=== PATIENT | female | born 1990 | race Caucasian/White ===

== ENCOUNTER 2023-01-24 16:37 | Emergency (ER) | payer OTHER ==
[2023-01-24 17:10] LABS: Absolute Lymphocytes (CBC) 0.7 K/uL (0.7-4.9); Hematocrit 40.2 % (36.0-45.0); Lymphocytes % 14.2 % (15.3-44.8); MCV 93.8 fL (80-100); MPV 8.4 fL (7.6-11.3); Platelets 173 thou/uL (152-406); RBC Red Blood Cell Count 4.29 M/uL (3.86-4.86)
[2023-01-24] MEDS ORDERED: NA CHLORIDE 0.9% 1,000 ML ONE (17:10)
[2023-01-24 17:28] LABS: Albumin 4.2 g/dL (3.4-5.0); Bilirubin Direct 0.4 mg/dL (0-0.2); Bilirubin Indirect, Calculated 0.4 mg/dL (0.2-0.8); Bilirubin Total 0.8 mg/dL (0.2-1.0); Magnesium 1.6 mg/dL (1.6-2.4); Potassium 4.3 mEq/L (3.5-5.1); Protein, Total 8.4 g/dL (6.4-8.2)
--- NOTE | 2023-01-24 18:03 | RAD REPORT ---
EXAM DESCRIPTION: Donald Single View01/24/2023 5:31 pm CLINICAL HISTORY: CHEST PAIN COMPARISON: No comparisons TECHNIQUE: Portable AP view of the chest. FINDINGS: Small medial basal airspace opacity favored to reflect atelectasis. No pneumothorax or ef fusion. The cardiomediastinal contours are unremarkable. IMPRESSION: No acute cardiopulmonary process.
--- NOTE | 2023-01-24 18:54 | RAD REPORT ---
EXAM DESCRIPTION: US - Abdomen Exam Limited - 01/24/2023 6:24 pm CLINICAL HISTORY: ABD PAIN COMPARISON: No comparisons TECHNIQUE: Sonographic grayscale and color flow images of the right upper abdominal quadrant were obtained. FINDINGS: The gallbladder demonstrates no gallstones. No pericholecystic fluid or gallbladder wall t hickening. The common bile duct is normal measuring 4 mm. The liver demonstrates no findings of intrahepatic biliary dilatation. IMPRESSION: Unremarkable right upper quadrant ultrasound.
[2023-01-24] MEDS ORDERED: LORazepam 2 MG/ML VIAL ONE (19:49)
[2023-01-24 20:16] LABS: Protime INR 0.98
--- NOTE | 2023-01-24 21:59 | RAD REPORT ---
EXAM DESCRIPTION: CT - Chest For Pe Angio - 01/24/2023 9:18 pm CLINICAL HISTORY: chest pain, shortness of breath COMPARISON: Chest Single View dated 01/24/2023 TECHNIQUE: Thin axial CT images of the chest were obtained following administration of 70 mL Isovue 370 IV contrast. Multiplanar reconstructions, and maximum intensity projection reconstructions were g enerated and reviewed. Exam utilizes a protocol for optimal evaluation of pulmonary arterial tree. All CT scans are performed using dose optimization technique as appropriate and may include automated exposure control or mA/KV adjustment according to patient size. FINDINGS: Pulmonary arteries are normal. No emboli or other suspicious finding. No acute or signific ant aorta findings. Incidentally noted aberrant right subclavian artery. No mass or infiltrate in the lung parenchyma. No pleural thickening or pleural effusion. No pneumotho rax. No abnormal mediastinal or hilar masses or lymphadenopathy seen. No chest wall mass or abnormal axill iary lymphadenopathy. Diffuse hepatic parenchymal hypoattenuation suggesting steatosis. IMPRESSION: No evidence of acute central pulmonary emboli. No other acute pulmonary findings. Hepatic steatosis.
--- NOTE | 2023-01-24 22:29 | EDPHYS ---
Physician Documentation [facility] Name: Laney Pratt Age: 32 yrs Sex: Female : 1990 Arrival Date: 01/24/2023 Time: 16:37 Bed 19 Private MD: ED Physician Christiano Evans HPI: 01/24 18:22 This 32 yrs old Female presents to ER via Ambulatory with complaints of Chest Pain, ms3 Numbness Of Face, Breathing Difficulty. 18:22 32-year-old female with no past medical history presents for chest pain that has been ms3 ongoing for 2 days and vaginal bleeding for 2 months. Patient states she has gone through 12 pads per day with her vaginal bleeding. Patient endorses nausea and vomiting. Patient denies diarrhea. Patient states she is having 8/10 sharp left-sided chest pain. Patient denies alleviating or inciting factors. 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 - Social history:: Smoking status: Patient reports the use of cigarette tobacco products, smokes one-half pack cigarettes per day. ROS: 18:22 Constitutional: Negative for fever, and chills. ms3 18:22 Respiratory: Negative for shortness of breath, cough, wheezing, and pleuritic chest pain, Abdomen/GI: Negative for abdominal pain, nausea, vomiting, diarrhea, and constipation, MS/Extremity: Negative for injury and deformity, Skin: Negative for injury, rash, and discoloration. 18:22 Cardiovascular: Positive for chest pain. 18:22 All other systems are negative. Exam: 18:22 Constitutional: This is a well developed, well nourished patient who is awake, alert, ms3 and in no acute distress. Head/Face: Normocephalic, atraumatic. Neck: Trachea midline, no cervical lymphadenopathy. Supple, full range of motion without nuchal rigidity, or vertebral point tenderness. No Meningismus. Chest/axilla: Normal chest wall appearance and motion. Nontender with no deformity. Cardiovascular: Regular rate and rhythm with a normal S1 and S2. No gallops, murmurs, or rubs. Normal PMI, no JVD. No pulse deficits. Respiratory: Lungs have equal breath sounds bilaterally, clear to auscultation and percussion. No rales, rhonchi or wheezes noted. No increased work of breathing, no retractions or nasal flaring. Abdomen/GI: Soft, non-tender, with normal bowel sounds. No distension or tympany. No guarding or rebound. No evidence of tenderness throughout. Skin: Warm, dry with normal turgor. Normal color with no rashes, no lesions, and no evidence of cellulitis. MS/ Extremity: Pulses equal, no cyanosis. Neurovascular intact. Full, normal range of motion. Neuro: Awake and alert, GCS 15, oriented to person, place, time, and situation. Cranial nerves II-XII grossly intact. Motor strength 5/5 in all extremities. Sensory grossly intact. Cerebellar exam normal. Normal gait. 18:22 ECG was reviewed by the Attending Physician. ms3 Vital Signs: 16:41 BP 150 / 114; Pulse 139; Resp 18; Temp 98.7; Pulse Ox 98% ; Pain 8/10; ap3 18:30 BP 137 / 88; Pulse 95; Resp 19; Pulse Ox 100% on R/A; nj1 20:06 BP 148 / 102; Pulse 86; Resp 20; Pulse Ox 99% ; Pain 0/10; nj1 21:03 BP 137 / 88; Pulse 72; Resp 18; Pulse Ox 99% on R/A; mb9 22:50 BP 138 / 87; Pulse 76; Resp 16 S; Pulse Ox 99% on R/A; ha1 16:41 Pain Scale: Adult ap3 20:06 Pain Scale: Adult nj1 MDM: 16:50 Patient medically screened. ms3 18:22 Differential diagnosis: abnormal EKG, acute myocardial infarction, cholecystitis, ms3 Cholelithiasis. 21:46 Transition of care: After a detail discussion of the patient's case, care is ms3 transferred to Christiano Evans MD. 22:24 ED course: CT PE protocol is negative for PE, there is no acute pulmonary findings, sp4 there is hepatic steatosis. Patient's heart rate decreased to 72. Right upper quadrant ultrasound is negative. Patient has significant transaminitis with elevated AST ALT, elevated D-dimer likely secondary to acute hepatitis. Patient was discussed with Dr. Jose Larkin with gastroenterology, who states patient should be referred to his office for additional evaluation. Will send hepatitis panel to the lab today.. Will provide patient with Valium as needed anxiety and ondansetron as needed nausea . . 01/25 01:05 Data reviewed: vital signs, nurses notes, old medical records, lab test result(s), EKG, sp4 radiologic studies, CT scan, plain films, ultrasound. ED course: Patient stable for discharge home to be investigated for hepatitis.. 01/24 16:50 Order name: Basic Metabolic Panel; Complete Time: 17:32 ms3 01/24 16:50 Order name: CBC with Diff; Complete Time: 17:32 ms3 01/24 16:50 Order name: Magnesium; Complete Time: 17:32 ms3 01/24 16:50 Order name: Troponin HS; Complete Time: 17:32 ms3 01/24 16:51 Order name: Lipase; Complete Time: 17:32 ms3 01/24 16:51 Order name: LFT's; Complete Time: 17:32 ms3 01/24 19:23 Order name: D-Dimer; Complete Time: 20:18 ms3 01/24 19:29 Order name: PT-INR; Complete Time: 20:18 ms3 01/24 22:13 Order name: Hepatitis Panel sp4 01/24 16:50 Order name: XRAY Chest (1 view); Complete Time: 18:52 ms3 01/24 17:33 Order name: US Abdomen Limited; Complete Time: 19:04 ms3 01/24 20:18 Order name: CT Chest For PE Angio; Complete Time: 22:06 ms3 01/24 16:50 Order name: EKG; Complete Time: 16:51 ms3 01/24 16:50 Order name: Cardiac monitoring; Complete Time: 17:17 ms3 01/24 16:50 Order name: EKG - Nurse/Tech; Complete Time: 17:17 ms3 01/24 16:50 Order name: IV Saline Lock; Complete Time: 16:54 ms3 01/24 16:50 Order name: Labs collected and sent; Complete Time: 16:54 ms3 01/24 16:50 Order name: O2 Per Protocol; Complete Time: 17:00 ms3 01/24 16:50 Order name: O2 Sat Monitoring; Complete Time: 17:00 ms3 EC/31 18:22 Rate is 76 beats/min. Rhythm is regular. QRS [place] is Normal. [place] interval is normal. QRS ms3 interval is normal. QT interval is normal. Clinical impression: Normal ECG. Interpreted by me. Reviewed by me. Administered Medications: 16:59 Drug: NS 0.9% IV 1000 ml Route: IV; Rate: 1000 ml; Site: right antecubital; ll1 19:45 Drug: Ativan IVP 1 mg Route: IVP; Site: right antecubital; nj1 22:35 Drug: LORazepam PO 1 mg Route: PO; ha1 22:50 Follow up: Response: No adverse reaction ha1 22:35 Drug: Ondansetron PO 4 mg Route: PO; ha1 22:49 Follow up: Response: No adverse reaction ha1 Disposition Summary: 01/24/23 22:28 Discharge Ordered Location: Home sp4 Problem: new sp4 Symptoms: have improved sp4 Condition: Stable sp4 Diagnosis - Nonspecific reactive hepatitis sp4 - Acute hepatitis, acute transaminitis,, acute anxiety, tachycardia, nausea vomiting sp4 Followup: sp4 - With: Jose Nguyen MD - When: 7 - 10 days - Reason: Recheck today's complaints Discharge Instructions: - Discharge Summary Sheet sp4 - Fatty Liver Disease sp4 Forms: - Patient Portal Instructions sp4 - Leadership Thank You Letter sp4 Prescriptions: - ondansetron 4 mg Oral Tablet,disintegrating - take 1 tablet by ORAL route every 6 hours PRN nausea; 30 tablet; Refills: 0, sp4 Product Selection Permitted - Valium 5 mg Oral Tablet - take 1 tablet by ORAL route every 8-12 hours As needed PRN anxiety; 20 tablet; sp4 Refills: 0, Product Selection Permitted Signatures: Dispatcher [employer] EDLorena Ferris RN RN ap3 Ria Gonzales RN RN ll1 Vitaliy Garza DO DO ms3 Riya Diehl RN RN ha1 Christiano Evans MD MD sp4 Candice Hyde RN RN nj1
--- NOTE | 2023-01-24 22:29 | ER ---
Nurse's Notes [facility] Name: Laney Pratt Age: 32 yrs Sex: Female : 1990 Arrival Date: 01/24/2023 Time: 16:37 Bed 19 Private MD: Diagnosis: Nonspecific reactive hepatitis;Acute hepatitis, acute transaminitis,, acute anxiety, tachycardia, nausea vomiting Presentation: 01/24 16:41 Chief complaint: Patient states: she feels like the front side of her body is numb. ap3 .patient states this has happened two days ago as well. patient reports that she has been having heavy menstruating for approx a week. patient also states she vomited blood this morning. Coronavirus screen: At this time, the client does not indicate any symptoms associated with coronavirus-19. Ebola Screen: No symptoms or risks identified at this time. Initial Sepsis Screen: Does the patient meet any 2 criteria? HR > 90 bpm. Initial Sepsis Screen: Does the patient have a suspected source of infection? No. Patient's initial sepsis screen is negative. Risk Assessment: Do you want to hurt yourself or someone else? Patient reports no desire to harm self or others. Onset of symptoms was January 22, 2023. 16:41 Method Of Arrival: Ambulatory ap3 16:41 Acuity: SHABBIR 2 ap3 Triage Assessment: 16:45 General: Appears ill, Behavior is anxious. Pain: Complains of pain in chest Pain ap3 currently is 8 out of 10 on a pain scale. Neuro: Level of Consciousness is awake, alert, obeys commands, Oriented to person, place, time, situation, Appropriate for age. Cardiovascular: Reports chest pain, Patient's skin is warm and dry. Respiratory: Airway is patent Respiratory effort is even, unlabored, Respiratory pattern is regular, symmetrical. GI: Reports lower abdominal pain, upper abdominal pain, nausea, vomiting. 16:46 : Reports vaginal bleeding that is heavy flow. 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 - Social history:: Smoking status: Patient reports the use of cigarette tobacco products, smokes one-half pack cigarettes per day. Screenin:45 [facility] ED Fall Risk Assessment (Adult) History of falling in the last 3 months, ap3 including since admission No falls in past 3 months (0 pts). Abuse screen: Denies threats or abuse. Nutritional screening: No deficits noted. Tuberculosis screening: No symptoms or risk factors identified. Assessment: 17:02 Reassessment: No changes from previously documented assessment. Patient and/or family ll1 updated on plan of care and expected duration. Pain level reassessed. Patient is alert, oriented x 3, equal unlabored respirations, skin warm/dry/pink. 17:18 Pain: Pain began 2-3 days ago. nj1 17:19 Pain: Pain does not radiate. nj1 18:00 Reassessment: Patient appears in no apparent distress at this time. Patient and/or nj1 family updated on plan of care and expected duration. Pain level reassessed. Patient is alert, oriented x 3, equal unlabored respirations, skin warm/dry/pink. 19:00 Reassessment: Patient appears in no apparent distress at this time. Patient and/or nj1 family updated on plan of care and expected duration. Pain level reassessed. Patient is alert, oriented x 3, equal unlabored respirations, skin warm/dry/pink. 20:00 Reassessment: Patient appears in no apparent distress at this time. Patient and/or nj1 family updated on plan of care and expected duration. Pain level reassessed. Patient is alert, oriented x 3, equal unlabored respirations, skin warm/dry/pink. Patient denies pain at this time. 21:04 Reassessment: No changes from previously documented assessment. Patient and/or family mb9 updated on plan of care and expected duration. Pain level reassessed. Patient is alert, oriented x 3, equal unlabored respirations, skin warm/dry/pink. 22:50 Reassessment: Patient and/or family updated on plan of care and expected duration. Pain ha1 level reassessed. Patient is alert, oriented x 3, equal unlabored respirations, skin warm/dry/pink. Vital Signs: 16:41 BP 150 / 114; Pulse 139; Resp 18; Temp 98.7; Pulse Ox 98% ; Pain 8/10; ap3 18:30 BP 137 / 88; Pulse 95; Resp 19; Pulse Ox 100% on R/A; nj1 20:06 BP 148 / 102; Pulse 86; Resp 20; Pulse Ox 99% ; Pain 0/10; nj1 21:03 BP 137 / 88; Pulse 72; Resp 18; Pulse Ox 99% on R/A; mb9 22:50 BP 138 / 87; Pulse 76; Resp 16 S; Pulse Ox 99% on R/A; ha1 16:41 Pain Scale: Adult ap3 20:06 Pain Scale: Adult nj1 ED Course: 16:38 Patient arrived in ED. rg4 16:39 Vitaliy Garza DO is Attending Physician. ms3 16:44 Triage completed. ap3 16:45 Arm band placed on left wrist. ap3 16:54 Inserted saline lock: 22 gauge in right antecubital area, using aseptic technique. ll1 Blood collected. 16:59 Ria Gonzales RN is Primary Nurse. ll1 17:17 Patient has correct armband on for positive identification. Bed in low position. Call nj1 light in reach. Adult w/ patient. Provided Education on: fall precautions, call light. Client placed on continuous cardiac and pulse oximetry monitoring. NIBP monitoring applied. 17:18 Patient maintains SpO2 saturation greater than 95% on room air. nj1 17:33 XRAY Chest (1 view) In Process Unspecified. EDMS 18:26 US Abdomen Limited In Process Unspecified. EDMS 21:03 Report received from LOIS Harvey. mb9 21:20 CT Chest For PE Angio In Process Unspecified. EDMS 21:43 Attending Physician role handed off by Vitaliy Garza DO sp4 21:43 Christiano Evans MD is Attending Physician. sp4 22:00 Report received from LOIS Gupta. ha1 22:28 Jose Nguyen MD is Referral Physician. sp4 22:51 No provider procedures requiring assistance completed. IV discontinued, intact, ha1 bleeding controlled, No redness/swelling at site. Pressure dressing applied. Administered Medications: 16:59 Drug: NS 0.9% IV 1000 ml Route: IV; Rate: 1000 ml; Site: right antecubital; ll1 19:45 Drug: Ativan IVP 1 mg Route: IVP; Site: right antecubital; nj1 22:35 Drug: LORazepam PO 1 mg Route: PO; ha1 22:50 Follow up: Response: No adverse reaction ha1 22:35 Drug: Ondansetron PO 4 mg Route: PO; ha1 22:49 Follow up: Response: No adverse reaction ha1 Medication: 17:19 VIS not applicable for this client. nj1 Outcome: 22:28 Discharge ordered by . sp4 22:51 Discharged to home ambulatory, with family. ha1 22:51 Condition: stable 22:51 Discharge instructions given to patient, family, Instructed on discharge instructions, follow up and referral plans. medication usage, Demonstrated understanding of instructions, follow-up care, medications, Prescriptions given X 2. 22:51 Patient left the ED. ha1 Signatures: Dispatcher [employer] EDMS Marixa Pereira rg4 Lorena Richards RN RN ap3 Ria Gonzales RN RN ll1 Vitaliy Garza, DO ms3 Riya Diehl RN RN ha1 Ryanne Mccullough RN RN mb9 Christiano Evans MD MD sp4 Candice Hyde RN RN nj1
[2023-01-24] MEDS ORDERED: LORAZEPAM 1 MG TABLET ONE (22:46)
[2023-01-24] MEDS ORDERED: ONDANSETRON 4 MG (ODT) TAB ONE (22:47)
[2023-01-25 00:19] LABS: Hepatitis B Core IgM Nonreactive (Nonreactive); Hepatitis B surface AG Interp. Nonreactive (Nonreactive); Hepatitis C Virus Ab Nonreactive (Nonreactive)
[2023-01-25 00:30] VITALS: TEMP 98.7
[2023-01-25 00:53] VITALS: O2SAT 99
[2023-01-25 00:55] VITALS: BP 138/87
--- NOTE | 2023-01-25 15:22 | EKG ---
Test Date: 2023-01-24 Test Time: 17:09:46 Laboratory Geneticist: NIXON MEASUREMENT RESULTS: Intervals: Rate: 76 IN: 146 QRSD: 90 QT: 368 QTc: 414 [place]: P: 54 IN: 146 QRS: 17 T: 35 INTERPRETIVE STATEMENTS: Normal sinus rhythm with sinus arrhythmia Normal ECG No previous ECG available for comparison Electronically Signed On 01-25-23 15:20:55 CDT by Tim Atkinson
== END 2023-01-24 22:51 | disposition home or self-care (01) ==
LOC: ER 16:37
DX: F41.9 Anxiety disorder, unspecified (principal); B17.9 Acute viral hepatitis, unspecified; R74.01 Elevation of levels of liver transaminase levels; R11.2 Nausea with vomiting, unspecified; R00.0 Tachycardia, unspecified; F17.210 Nicotine dependence, cigarettes, uncomplicated
CPT/HCPCS: 93005; 85025; 80048; 36415; 83735; 85610; 85379; 80076; 84484; 83690; 80074; 71275; 71045; 76705; 96374; 99285; Q9967; Q0162; J7030

== ENCOUNTER 2023-05-02 21:23 | Emergency (ER) | payer OTHER, SELFPAY ==
[2023-05-02] MEDS ORDERED: ACETAMINOPHEN 500 MG TAB ONE (21:58)
--- NOTE | 2023-05-02 22:39 | RAD REPORT ---
EXAM DESCRIPTION: RAD - Foot Right 3 View - 05/02/2023 10:08 pm CLINICAL HISTORY: PAIN COMPARISON: No comparisons TECHNIQUE: Right foot, 3 views. FINDINGS: No fracture, dislocation or periosteal reaction. No air or foreign body in the soft tissues. Soft tissue swelling about the ankle. IMPRESSION: No acute osseous abnormality. Soft tissue swelling about the ankle. .
--- NOTE | 2023-05-02 22:41 | RAD REPORT ---
EXAM DESCRIPTION: RAD - Ankle Right 3 View - 05/02/2023 10:08 pm CLINICAL HISTORY: PAIN COMPARISON: No comparisons TECHNIQUE: Right ankle, 3 views. FINDINGS: Oblique fracture of the distal fibula. Questionable widening of the distal tibiofibular sy ndesmosis and lateral clear space. This can be further evaluated by weight-bearing views and addition al views of the proximal tibia/fibula. Surrounding soft tissue swelling. No periosteal reaction. No joint effusion seen. No joint space narrowing. . IMPRESSION: As above.
--- NOTE | 2023-05-02 23:28 | ER ---
Nurse's Notes [facility] Name: Laney Pratt Age: 32 yrs Sex: Female : 1990 Arrival Date: 05/02/2023 Time: 21:23 Bed 19 Private MD: Diagnosis: Nondisplaced fracture of lateral malleolus of right fibula Presentation: 05/02 21:32 Chief complaint: Patient states: stepped in a hole in her backyard last night and as6 hasn't been able to walk on her right ankle. Coronavirus screen: At this time, the client does not indicate any symptoms associated with coronavirus-19. Ebola Screen: No symptoms or risks identified at this time. Initial Sepsis Screen: Does the patient meet any 2 criteria? No. Patient's initial sepsis screen is negative. Does the patient have a suspected source of infection? No. Patient's initial sepsis screen is negative. Risk Assessment: Do you want to hurt yourself or someone else? Patient reports no desire to harm self or others. Onset of symptoms was May 01, 2023. 21:32 Method Of Arrival: Wheelchair as6 21:32 Acuity: SHABBIR 4 as6 Triage Assessment: 21:45 General: Appears uncomfortable, Behavior is cooperative, appropriate for age, anxious. bp Pain: Complains of pain in right ankle. Musculoskeletal: Bony deformity noted of right ankle. 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 - Social history:: Smoking status: Patient denies any tobacco usage or history of. Screenin/08 00:27 [facility] ED Fall Risk Assessment (Adult) History of falling in the last 3 months, bp including since admission No falls in past 3 months (0 pts). Abuse screen: Denies threats or abuse. Denies injuries from another. Nutritional screening: No deficits noted. Tuberculosis screening: No symptoms or risk factors identified. Assessment: 00:27 Reassessment: [facility]. bp Vital Signs: 05/02 21:32 BP 136 / 88; Pulse 94; Resp 18 S; Temp 97.5(TE); Pulse Ox 100% on R/A; Weight 63.5 kg as6 (R); Height 5 ft. 4 in. (R); Pain 7/10; 21:32 Body Mass Index 24.03 (63.50 kg, 162.56 cm) as6 21:32 Pain Scale: Adult as6 ED Course: 21:30 Patient arrived in ED. gm2 21:32 Star Treviño PA is PHCP. cp 21:32 Star Vigil MD is Attending Physician. cp 21:35 Triage completed. as6 21:36 Arm band placed on. as6 22:10 XRAY Ankle RIGHT 3 view In Process Unspecified. EDMS 22:10 XRAY Foot RIGHT 3 View In Process Unspecified. EDMS 22:54 Sheldon Camara, LOIS is Primary Nurse. bp 23:25 Alan Pascal MD is Referral Physician. cp 05/03 00:00 Crutch training done. Orthoglass splint: Posterior short lleg splint applied on right bp leg. stirrup splint applied on right leg. 00:27 Patient has correct armband on for positive identification. Bed in low position. Call bp light in reach. Side rails up X2. Adult w/ patient. 00:27 No provider procedures requiring assistance completed. Patient did not have IV access bp during this emergency room visit. Administered Medications: 05/02 21:38 Not Given (Other Intervention Used): acetaminophen-codeine(300 mg-30 mg) 2 tabs PO mb9 once; RASS on ADMIN: Combtv4, Very Agttd3, Agttd2, Rstlss1, AlertClm0, Drwsy-1, Lt Sdtn-2, Mod Sdtn-3, Dp Sdtn-4, UnArsble-5 21:39 Not Given (Other Intervention Used): [id number] mg PO once mb9 21:46 Drug: Acetaminophen PO 1000 mg PO once Route: PO; as6 05/03 00:29 Follow up: Response: No adverse reaction bp Outcome: 05/02 23:27 Discharge ordered by . cp 05/03 00:28 Discharged to home via wheelchair, with crutches, with family, bp Condition: stable Discharge instructions given to patient, family, Instructed on discharge instructions, follow up and referral plans. crutch walking, Demonstrated understanding of instructions, follow-up care, crutch walking, splint care, 00:29 Patient left the ED. bp Signatures: Dispatcher [employer] EDMS Star Treviño PA PA cp Peltier, Brian RN RN Jesse Sullivan RN RN as6 Marcela Bishop 2 Ryanne Mccullough RN mb9
--- NOTE | 2023-05-02 23:28 | EDPHYS ---
Physician Documentation [facility] Name: Laney Pratt Age: 32 yrs Sex: Female : 1990 Arrival Date: 05/02/2023 Time: 21:23 Bed 19 Private MD: ED Physician Star Vigil HPI: 05/02 21:45 This 32 yrs old Female presents to ER via Wheelchair with complaints of Ankle Injury. cp 21:45 The patient presents with an injury, pain, that is acute, swelling, tenderness. The cp complaints affect the right ankle. Onset: The symptoms/episode began/occurred yesterday. Context: The patient is unable to bear weight. must have assistance, stepped in hole in yard. Associated signs and symptoms: The patient has no apparent associated signs or symptoms. Modifying factors: the symptoms are aggravated by movement. MEAT BONER: 21:35 LMP 01/2023, Verified, EDC 11/01/2023, Gestational age from LMP: 14 weeks 0 days as6 Historical: - Allergies: 21:36 No Known Allergies; as6 - Home Meds: 21:36 None [Active]; as6 - PMHx: 21:36 None; as6 - PSHx: 21:36 None; as6 - Immunization history:: Adult Immunizations up to date. - Social history:: Smoking status: Patient denies any tobacco usage or history of. ROS: 21:50 MS/extremity: Positive for decreased range of motion, ecchymosis, pain, swelling, cp tenderness, of the right ankle, 21:50 Neck: Negative for pain with movement, pain at rest, cp 21:50 Back: Negative for pain at rest, pain with movement, 21:50 Neuro: Positive for numbness, of the right foot, 21:50 All other systems are negative, Exam: 21:55 Constitutional: The patient appears in no acute distress, alert, awake, well developed, cp well nourished, uncomfortable, 21:55 Head/Face: Normocephalic, atraumatic. cp 21:55 Neck: ROM/movement: is normal, is supple, without pain, no range of motions limitations, 21:55 Chest/axilla: Inspection: normal, 21:55 Cardiovascular: Rate: normal, 21:55 Respiratory: the patient does not display signs of respiratory distress, Respirations: normal, no use of accessory muscles, 21:55 Back: pain, is absent, ROM is normal, 21:55 Musculoskeletal/extremity: Extremities: grossly normal except: noted in the right ankle: swelling, marked tenderness, ecchymosis noted lateral malleolus, Achilles tendon palpated and intact, no pain at proximal right fibula and or base of right fifth metatarsal, Perfusion: the extremity is normally perfused throughout, the right foot decreased sensation, Vital Signs: 21:32 BP 136 / 88; Pulse 94; Resp 18 S; Temp 97.5(TE); Pulse Ox 100% on R/A; Weight 63.5 kg as6 (R); Height 5 ft. 4 in. (R); Pain 7/10; 21:32 Body Mass Index 24.03 (63.50 kg, 162.56 cm) as6 21:32 Pain Scale: Adult as6 Procedures: 23:30 Splinting: Splint applied to right ankle using Orthoglass splint, applied by nurse. cp Examined by me, post splint application: neurovascular intact, Patient tolerated well. MDM: 21:37 Patient medically screened. [facility] 23:26 Data reviewed: vital signs, nurses notes, radiologic studies, plain films. cp 23:26 Differential diagnosis: fracture, sprain, dislocation. I considered the following cp discharge prescriptions or medication management in the emergency department Medications were administered in the Emergency Department. See MAR. Counseling: I had a detailed discussion with the patient and/or guardian regarding the historical points, exam findings, and any diagnostic results supporting the discharge/admit diagnosis, radiology results, the need for outpatient follow up, for definitive care, a orthopedic surgeon, to return to the emergency department if symptoms worsen or persist or if there are any questions or concerns that arise at home. Response to treatment: the patient's symptoms have mildly improved after treatment, and as a result, I will discharge patient. 05/02 21:35 Order name: XRAY Ankle RIGHT 3 view; Complete Time: 22:51 cp 05/02 21:35 Order name: XRAY Foot RIGHT 3 View; Complete Time: 22:51 cp 05/02 22:51 Interpretation: Report reviewed. cp 05/02 22:52 Order name: Splint Leg: Short Leg: with stirrup cp 05/02 22:52 Order name: Crutches cp Administered Medications: 21:38 Not Given (Other Intervention Used): acetaminophen-codeine(300 mg-30 mg) 2 tabs PO mb9 once; RASS on ADMIN: Combtv4, Very Agttd3, Agttd2, Rstlss1, AlertClm0, Drwsy-1, Lt Sdtn-2, Mod Sdtn-3, Dp Sdtn-4, UnArsble-5 21:39 Not Given (Other Intervention Used): [id number] mg PO once mb9 21:46 Drug: Acetaminophen PO 1000 mg PO once Route: PO; as6 05/03 00:29 Follow up: Response: No adverse reaction bp Disposition Summary: 05/02/23 23:27 Discharge Ordered Notes: Location: Home cp Problem: new cp Symptoms: have improved cp Condition: Stable cp Diagnosis - Nondisplaced fracture of lateral malleolus of right fibula cp Followup: cp - With: Alan Pascal MD - When: 2 - 3 days - Reason: distal fibula fracture Discharge Instructions: - Discharge Summary Sheet cp - Nondisplaced Fibular Ankle Fracture Treated With Immobilization cp Forms: - Medication Reconciliation Form cp - Thank You Letter cp - Antibiotic Education cp - Prescription Opioid Use cp - Patient Portal Instructions cp - Leadership Thank You Letter cp Signatures: Dispatcher [employer] EDStar [place] MD MD cha Page, Corey, PA PA cp Jesse Bueno, RN RN as6 Ryanne Mccullough RN RN mb9 Sheldon Camara RN bp Corrections: (The following items were deleted from the chart) 23:29 23:28 MS/extremity: Positive for decreased range of motion, ecchymosis, pain, swelling, cp tenderness, of the right ankle, cp
[2023-05-03 00:42] VITALS: BP 136/88; TEMP 97.5; O2SAT 100
== END 2023-05-03 00:29 | disposition home or self-care (01) ==
LOC: ER 21:23
PROC: 2W3LX1Z Immobilization of Right Lower Extremity using Splint (ICD-10-PCS; principal; 2023-05-03)
DX: O9A.212 Injury, poisoning and certain other consequences of external causes complicating pregnancy, second trimester (principal); S82.64XA Nondisplaced fracture of lateral malleolus of right fibula, initial encounter for closed fracture; Z3A.14 14 weeks gestation of pregnancy
CPT/HCPCS: 99283

== ENCOUNTER 2023-11-19 03:40 | Emergency (ER) | payer OTHER ==
--- OUTSIDE RECORDS SUMMARY | 2023-11-19 03:43 | XMS REPORT | Continuity of Care Document ---
Author Name Unknown Address [address] [place] [address] [facility] Address [address] [facility] [address] [place] [address] Care Team Providers Care Corporate Physical Security Supervisor Name Role Phone PCP, PATIENT DOES NOT HAVE A Primary Care Physic lesa Unavailable Matt Evans Attending Clinician BRUCE Melchor Attending Clinician Unavailable Bruce Lara MD Attending Clinician Matt Evans Admitting Clinician BRUCE Melchor Admitting Clinician Unavailable Payers Payer Name Policy Type Policy Number Effective Date Expirati on Date Source [place] [employer]LO [id number] 2023 00:00:00 Allergies, Adverse Reactions, Alerts Allergy Name Allergy Type Status Severity Reaction(s) Onset Date Inactive Date Treating Clinician Comments Source No Known Allergie s DA Active U 0 6-05 00:00: 00 [facility] No Known Allergie s DA Active U 0 10-24 00:00: 00 [facility] No Known Allergie s DA Active U 0 5- 00:00: 00 [facility] No Known Allergie s DA Active U 0 09-23 00:00: 00 [facility] NO KNOWN ALLERGIE S Drug Class Active [facility] Social History Social Habit Start Date Stop Date Quantity Comments Source Sexual orientation U [facility] Sex Assigned At 1990 00:00:00 1990 00:00:00 [facility] Smoking Status Start Date Stop Date Source Tobacco smoking consumption unknown [facility] Vital Signs Vital Name Observation Time Observation Value Hope argueta Systolic blood pressure 2023-05-24 07:00:00 129 mm[Hg] [facility] Diastolic blood pressure 2023-05-24 07:00:00 87 mm[Hg] [facility] Heart rate 2023-05-24 07:00:00 87 /min [facility] Body temperature 2023-05-24 07:00:00 37.17 Suzanne [facility] Respiratory rate 2023-05-24 07:00:00 14 /min [facility] Oxygen saturation in Arterial blood by Pulse oximetry 2023-05-24 07:00:00 98 /min [facility] Body height 2023-05-24 04:24:00 162.6 cm [facility] Body weight 2023-05-24 04:24:00 61.236 kg [facility] BMI 2023-05-24 04:24:00 23.17 kg/m2 [facility] Procedures Procedure Date / Time Performed Performing Clinician Source [id number] 2023-10-31 00:00:00 ERNESTINA [facility] FIRST TRIMESTER LESS THAN 14 WEEKS WITH TRANSVAGINAL 2023-05-24 06:15:00 Bruce Lara [facility] ABORH CONFIRMATION (LAB ONLY) 2023-05-24 05:52:00 Bruce Lara [facility] POCT TEST 2023-05-24 04:57:00 Bruce Lara [facility] URINALYSIS 2023-05-24 04:54:00 Bruce Lara [facility] BASIC METABOLIC PANEL (NA, K, CL, CO2, GLUCOSE, BUN, CREATININE, CA) 2023-05-24 04:31:00 Bruce Lara [facility] TOTAL BETA HCG ASSAY 2023-05-24 04:31:00 Julio Cesar Lara i [facility] CBC WITH DIFF 2023-05-24 04:31:00 Bruce Lara [facility] HB ABO GROUPING 2023-05-24 04:31:00 [facility] Start Date/Time End Date/Time Encounter Type Admission Type Attending [facility] Facility Care Department Encounter ID Source 2023-10-30 21:22:00 2023-11-02 00:15:00 Inpatient EM Matt Evans [facility] OBPP [id number] [facility] 2023-10-25 15:01:00 2023-10-26 12:02:00 Inpatient EM Matt Evans [facility] OBANTE [id number] [facility] 2023-10-01 16:34:00 2023-10-02 21:45:00 Inpatient UR Matt Evans [facility] OBANTE [id number] [facility] 2023-09-24 11:48:00 2023-09-24 13:38:00 Emergency EM Matt Evans [facility] JONI [id number] [facility] 2023-05-23 22:29:00 2023-05-24 01:25:00 Emergency X BRUCE LARA [facility] ERT [id number] [facility] 2023-05-23 22:29:00 2023-05-24 01:25:00 Emergency Bruce Lara [facility] [id number] [facility] Results Test Description Test Time Test Comments Results Result Co mments Source AB HEPATITIS C [id number] 22:52:00* Test Item Value Reference Range Interpretation Comme nts AB HEPATITIS C (test code = HCVAB) NONREACTIVE NONREACTIVE SIGNAL TO CUTOFF (test code = CUTOFF) 0.08 <0.80 N AB [id number] 22:52:00* Test Item Value Reference Range Interpretation Comme nts AB TREPONEMA (test code = TREPAB) NONREACTIVE NONREACTIVE AB HIV 1 22:52:00* Test Item Value Reference Range Interpretation Comme nts AB HIV 1 2 (test code = WCK19PU) NONREACTIVE NONREACTIVE Done by [employer] 4th Gen HIV Ag/Ab Combo Screen CBC W/AUTO [id number] 21:43:00* Test Item Value Reference Range Interpretation Comme nts WHITE BLOOD CELL (test code = WBC) 12.7 K/mm3 6.5-12.3 H RED BLOOD CELL (test code = RBC) 4.16 M/mm3 3.51-4.69 N HEMOGLOBIN (test code = HGB) 12.1 g/dL 10.1-13.8 N HEMATOCRIT (test code = HCT) 35.5 % 32.5-41.8 N MEAN CELL VOLUME (test code = MCV) 85.3 fL 84.6-96.6 N MEAN CELL HGB (test code = MCH) 29.1 pg 27.3-33.9 N MEAN CELL HGB CONCETRATION ( test code = MCHC) 34.1 gm/dL 32.0-34.2 N RED CELL DISTRIBUTION WIDTH (test code = RDW) 14.5 % 12.2-16.3 N PLATELET COUNT (test code = PLT) 299 K/mm3 134-363 N MEAN PLATELET VOLUME (test c ode = MPV) 11.1 fL 9.2-12.7 N NEUTROPHIL % (test code = NT%) 65.8 % 57.9-77.3 N LYMPHOCYTE % (test code = LY%) 24.7 % 14.5-29.7 N MONOCYTE % (test code = MO%) 6.6 % 3.6-10.2 N EOSINOPHIL % (test code = EO%) 2.2 % 0.0-3.0 N BASOPHIL % (test code = BA%) 0.3 % 0.1-0.9 N NEUTROPHIL # (test code = NT#) 8.4 K/mm3 LYMPHOCYTE # (test code = LY#) 3.1 K/mm3 MONOCYTE # (test code = MO#) 0.8 K/mm3 EOSINOPHIL # (test code = EO#) 0.28 K/mm3 BASOPHIL # (test code = BA#) 0.0 K/mm3 UR PROTEIN/CREATININE [id number] 15:04:00* Test Item Value Reference Range Interpretation Comme nts UR PROTEIN RANDOM (test code = PROTU) 14 mg/dL No reference range available UR CREATININE RANDOM (test code = CREATU) 51 mg/dL No referenc e range available PROTEIN/CREATININE RATIO (test code = P/CRATIO) 274.5 mg/gcrea <200 H COMPREHENSIVE METABOLIC [id number] 14:37:00* Test Item Value Reference Range Interpretation Comme nts SODIUM (test code = NA) 136 mEq/L 136-145 N POTASSIUM (test code = K) 3.8 mEQ/L 3.4-4.5 N Please note new normal range as of September 2023 CHLORIDE (test code = CL) 107 mEq/L 98-107 N Please note new normal range as of September 2023 CARBON DIOXIDE (test code = CO2) 20 mEq/L 22-31 L ANION GAP (test code = GAP) 12.8 10-20 N GLUCOSE (test code = GLU) 131 mg/dL 74-106 H Please note new normal range as of September 2023 BLOOD UREA NITROGEN (test code = BUN) 5 mg/dL 8-23 L Please note ne w normal range as of September 2023 CREATININE (test code = CREAT) 0.6 mg/dL 0.55-1.02 N Please note new normal range as of September 2023 TOTAL PROTEIN (test code = PROT) 7.0 g/dL 5.7-8.2 N Please note new normal range as of September 2023 ALBUMIN (test code = ALB) 4.3 g/dL 3.2-4.8 N Please note new normal range as of September 2023 CALCIUM (test code = CA) 9.8 mg/dL 8.3-10.6 N Please note new normal range as of September 2023 BILIRUBIN TOTAL (test code = BILT) 0.3 mg/dL 0.3-1.2 N Please note n ew normal range as of September 2023 SGOT/AST (test code = AST) 13 units/L < 34 SGPT/ALT (test code = ALT) <7 units/L 10-49 L ALKALINE PHOSPHATASE TOTAL (test code = ALKP) 145 units/L 46-116 H Please note n ew normal range as of September 2023 GLOMERULAR FILTRATION RATE (test code = GFR) 122.99 ml/min >60 N The Glomerular Filtration Rate is a calculated parameterbased on serum Creatinine, patient age and sex. GFR valuesless than 60 mL/min/1.73 square meters are indicative ofChronic Kidney Disease. Values less than 15 mL/min/1.73square meters indicate Kidney failure. The calculation forGFR is based on the CKD-EPI (2021) calculation. This formulais race indifferent and is the recommended formula for GFRby the National Kidney Foundation for Adults.The GFR will not calculate if the sex is unknown or if thepatient's age is <18 years. URINALYSIS [id number] 14:22:00* Test Item Value Reference Range Interpretation Comme nts UA COLOR (test code = COLU) YELLOW YELLOW UA APPEARANCE (test code = APPU) Slightly-Cloudy CLEAR UA GLUCOSE DIPSTICK (test code = DGLUU) NEGATIVE NEG UA BILIRUBIN DIPSTICK (test code = BILU) NEGATIVE NEG UA KETONE DIPSTICK (test cod e = KETU) NEGATIVE NEG UA SPECIFIC GRAVITY (test code = SGU) 1.009 1.001-1.035 N UA BLOOD DIPSTICK (test code = ASHLEY) NEG NEG UA PH DIPSTICK (test code = TRAN) 6.0 5-9 UA PROTEIN DIPSTICK (test code = PROU) NEGATIVE NEG UA UROBILINIOGEN DIPSTICK (test code = URO) NEGATIVE mg/dL NEG UA NITRITE DIPSTICK (test code = ZULEMA) NEG NEG UA LEUKOCYTE ESTERASE DIPSTICK (test code = LEUU) NEG NEG UA WBC (test code = WBCU) 0-2 #/hpf NONE SEEN UA RBC (test code = RBCU) 0-2 #/hpf NONE SEEN UA EPITHELIAL CELLS (test code = EPIU) MANY #/HPF RARE-FEW A UA BACTERIA (test code = BACU) RARE /HPF RARE-FEW UA MUCUS (test code = MUCU) RARE NONE SEEN URINE SAMPLE: CLEAN CATCHCBC W/AUTO [id number] 14:16:00* Test Item Value Reference Range Interpretation Comme nts WHITE BLOOD CELL (test code = WBC) 10.3 K/mm3 6.5-12.3 N RED BLOOD CELL (test code = RBC) 4.38 M/mm3 3.51-4.69 N HEMOGLOBIN (test code = HGB) 12.5 g/dL 10.1-13.8 N HEMATOCRIT (test code = HCT) 38.2 % 32.5-41.8 N MEAN CELL VOLUME (test code = MCV) 87.2 fL 84.6-96.6 N MEAN CELL HGB (test code = MCH) 28.5 pg 27.3-33.9 N MEAN CELL HGB CONCETRATION ( test code = MCHC) 32.7 gm/dL 32.0-34.2 N RED CELL DISTRIBUTION WIDTH (test code = RDW) 14.0 % 12.2-16.3 N PLATELET COUNT (test code = PLT) 274 K/mm3 134-363 N MEAN PLATELET VOLUME (test c ode = MPV) 11.0 fL 9.2-12.7 N NEUTROPHIL % (test code = NT%) 71.9 % 57.9-77.3 N LYMPHOCYTE % (test code = LY%) 20.5 % 14.5-29.7 N MONOCYTE % (test code = MO%) 5.6 % 3.6-10.2 N EOSINOPHIL % (test code = EO%) 1.4 % 0.0-3.0 N BASOPHIL % (test code = BA%) 0.2 % 0.1-0.9 N NEUTROPHIL # (test code = NT#) 7.4 K/mm3 LYMPHOCYTE # (test code = LY#) 2.1 K/mm3 MONOCYTE # (test code = MO#) 0.6 K/mm3 EOSINOPHIL # (test code = EO#) 0.14 K/mm3 BASOPHIL # (test code = BA#) 0.0 K/mm3 UR CREATININE CLEARANCE [id number] 22:30:00* Test Item Value Reference Range Interpretation Comme nts CREATININE CLEARANCE RESULT (test code = CREATCLR) 132 ml/min 70-120 H CREATININE (test code = CREAT) 0.6 mg/dL 0.5-1.0 N UR CREATININE RANDOM (test code = CREATU) 67.2 mg/dL No referenc e range available UR VOLUME (test code = VOL) 1700 ML UR PROTEIN [id number] 22:30:00* Test Item Value Reference Range Interpretation Comme nts UR PROTEIN RANDOM (test code = PROTU) 7.1 mg/dL No reference range available UR PROTEIN 24HR (test code = ULBP79B) 121 mg/24HR 20-150 N Units for 24 HR Urine Protein have changed: New Units = MG/24HR AG HEPATITIS B [id number] 22:40:00* Test Item Value Reference Range Interpretation Comme nts AG HEPATITIS B SURFACE (test code = HBSAG) NONREACTIVE NONREACTIVE AB HEPATITIS C [id number] 22:40:00* Test Item Value Reference Range Interpretation Comme nts AB HEPATITIS C (test code = HCVAB) NONREACTIVE NONREACTIVE SIGNAL TO CUTOFF (test code = CUTOFF) 0.06 <0.80 N AB [id number] 22:40:00* Test Item Value Reference Range Interpretation Comme nts AB TREPONEMA (test code = TREPAB) NONREACTIVE NONREACTIVE AB HIV 1 22:40:00* Test Item Value Reference Range Interpretation Comme nts AB HIV 1 2 (test code = LBU23YO) NONREACTIVE NONREACTIVE Done by [employer] Get-[employer] 4th Gen HIV Ag/Ab Combo Screen BASIC METABOLIC [id number] 21:24:00* Test Item Value Reference Range Interpretation Comme nts SODIUM (test code = NA) 138 mEq/L 135-145 N POTASSIUM (test code = K) 3.8 mEq/L 3.5-5.0 N CHLORIDE (test code = CL) 101 mEq/L 100-115 N CARBON DIOXIDE (test code = CO2) 26 mEq/L 22-31 N ANION GAP (test code = GAP) 14.80 10-20 N GLUCOSE (test code = GLU) 93 mg/dL 65-110 N BLOOD UREA NITROGEN (test code = BUN) 6 mg/dL 7-18 L GLOMERULAR FILTRATION RATE (test code = GFR) 123 ml/min >60 N The Glomerular Filtration Rate is a calculated parameterbased on serum Creatinine, patient age and sex. GFR valuesless than 60 mL/min/1.73 square meters are indicative ofChronic Kidney Disease. Values less than 15 mL/min/1.73square meters indicate Kidney failure. The calculation forGFR is based on the CKD-EPI (2020) calculation. This formulais race indifferent and is the recommended formula for GFRby the National Kidney Foundation for Adults.The GFR will not calculate if the sex is unknown or if thepatient's age is <18 years. CREATININE (test code = CREAT) 0.6 mg/dL 0.5-1.0 N CALCIUM (test code = CA) 10.0 mg/dL 8.4-10.2 N LIVER [id number] 21:24:00* Test Item Value Reference Range Interpretation Comme nts TOTAL PROTEIN (test code = PROT) 7.7 gm/dL 6.3-8.2 N ALBUMIN (test code = ALB) 3.0 gm/dL 3.4-4.8 L BILIRUBIN TOTAL (test code = BILT) 0.2 mg/dL 0.2-1.0 N BILIRUBIN DIRECT (test code = BILD) <0.2 mg/dL <0.2 N SGOT/AST (test code = AST) 13 units/L 15-37 L SGPT/ALT (test code = ALT) 19 units/L 12-78 N ALKALINE PHOSPHATASE TOTAL ( test code = ALKP) 116 units/L 46-116 N - US PREG UT [id number] 20:41:00 [facility] : 1990 Sex: F Patient Name: LANEY YOUNG Unit No: [id number] EXAMS: CPT CODE: [id number] US PREG UT TRANSVAGINAL 46695 COMPARISON: None CLINICAL HISTORY: 32 weeks , history of elevated blood pressure FINDINGS: A limited OB ultrasound was performed to evaluate for biophysical profile. Uterus: Single intrauterine Lower uterine segment/cervix: Normal with a cervical length of 2.6 cm Placenta location: Posterior. No evidence for placenta previa or placenta abruption Amniotic fluid volume: Appropriate with THONG = 19 cm position: Cephalic heart rate: 125 beats per minute BIOPHYSICALPROFILE ARE FOLLOW: breathing movement: 2 Gross body movement: 2 tone: 2 Quantitative AFV: 2 Total: 8 out of 8 IMPRESSION: Viable single intrauterine with a biophysical profile 8 out of 8. at 2040 Reported andsigned by: Venkata Ho M.D. CC: Matt Evans DO Technologist: Cheri Coto RDMS Probe: [id number] Trnscrbd D/ (2040) tSTERLINGN Orig Print D/T: S: 10/01/2023 (2043) [facility] NAME: [facility] Radiology Department PHYS: ANARandaMatt Caban [address] : 1990 AGE: 32 SEX: F [place] [address] LOC: Rick A PHONE #: [phone] EXAM DATE: 10/01/2023 STATUS: ADM IN FAX #: [phone] RAD NO: Page 1 Signed Report Patient Name: LANEY YOUNG Unit No: [id number] EXAMS: CPT CODE: [id number] US PREG UT TRANSVAGINAL 93380 (Continued) [facility] NAME: [facility] Radiology Department PHYS: ANARandaMatt Caban [address] : 1990 AGE: 32 SEX: F [place] [address] LOC: [id number] A PHONE #: [phone] EXAM DATE: 10/01/2023 STATUS: ADM IN FAX #: [phone] RAD NO: Page 2 Signed Report- US FET BIO PH NM W/O [id number] 20:41:00 [facility] 1990 Sex: F Patient Name: LANEY YOUNG Unit No: [id number] EXAMS: CPT CODE: [id number] US FET BIO PH NM W/O [id number] COMPARISON: None CLINICAL HISTORY: 32 weeks , history of elevated blood pressure FINDINGS: A limited OB ultrasound was performed to evaluate for biophysical profile. Uterus: Single intrauterine Lower uterine segment/cervix: Normal with a cervical length of 2.6 cm Placenta loc ation: Posterior. No evidence for placenta previa or placenta abruption Amniotic fluid volume: Appropriate with THONG = 19 cm position: Cephalic heart rate: 125 beats per minute BIOPHYSICALPROFILE ARE FOLLOW: breathing movement: 2 Gross body movement: 2 tone: 2 Quantitative AFV: 2 Total: 8 out of 8 IMPRESSION: Viable single intrauterine with a biophysical profile 8 out of 8. at 2040 Reported and signed by: Venkata Ho M.D. CC: Matt Evans DO Technologist: Cheri Coto RDMS Probe: Trnscrbd D/ (2040) DeshawnHNN Orig Print D/T: S: 10/01/2023 (2043) [facility] NAME: LANEY YOUNG Radiology Department PHYS: Matt Strange [address] : 1990 AGE: 32 SEX: [place] [address] LOC: F.3036 A PHONE #: [phone] EXAM DATE: 10/01/2023 STATUS: ADM IN FAX #: [phone] RAD NO: Page 1 Signed Report Patient Name: LANEY YOUNG Unit No: [id number] EXAMS: CPT CODE: [id number] US FET BIO PH NM W/O NST 91102 (Continued) [facility] NAME: LANEY YOUNG Radiology Department PHYS: Matt Strange [address] : 1990 AGE: 32 SEX: F [place], [place] [address] LOC: [id number] A PHONE #: [phone] EXAM DATE: 10/01/2023 STATUS: ADM IN FAX #: RAD NO: Page 2 Signed ReportCBC W/AUTO [id number] 20:21:00* Test Item Value Reference Range Interpretation Comme nts WHITE BLOOD CELL (test code = WBC) 10.6 K/mm3 6.5-12.3 N RED BLOOD CELL (test code = RBC) 4.25 M/mm3 3.51-4.69 N HEMOGLOBIN (test code = HGB) 12.7 g/dL 10.1-13.8 N HEMATOCRIT (test code = HCT) 37.5 % 32.5-41.8 N MEAN CELL VOLUME (test code = MCV) 88.2 fL 84.6-96.6 N MEAN CELL HGB (test code = MCH) 29.9 pg 27.3-33.9 N MEAN CELL HGB CONCETRATION ( test code = MCHC) 33.9 gm/dL 32.0-34.2 N RED CELL DISTRIBUTION WIDTH (test code = RDW) 14.9 % 12.2-16.3 N PLATELET COUNT (test code = PLT) 352 K/mm3 134-363 N MEAN PLATELET VOLUME (test c ode = MPV) 11.4 fL 9.2-12.7 N NEUTROPHIL % (test code = NT%) 70.7 % 57.9-77.3 N LYMPHOCYTE % (test code = LY%) 21.9 % 14.5-29.7 N MONOCYTE % (test code = MO%) 5.8 % 3.6-10.2 N EOSINOPHIL % (test code = EO%) 0.9 % 0.0-3.0 N BASOPHIL % (test code = BA%) 0.3 % 0.1-0.9 N NEUTROPHIL # (test code = NT#) 7.5 K/mm3 LYMPHOCYTE # (test code = LY#) 2.3 K/mm3 MONOCYTE # (test code = MO#) 0.6 K/mm3 EOSINOPHIL # (test code = EO#) 0.10 K/mm3 BASOPHIL # (test code = BA#) 0.0 K/mm3 UR PROTEIN/CREATININE [id number] 13:21:00* Test Item Value Reference Range Interpretation Comme nts UR PROTEIN RANDOM (test code = PROTU) <6.0 mg/dL No reference range available UR CREATININE RANDOM (test code = CREATU) 16.2 mg/dL No referenc e range available PROTEIN/CREATININE RATIO (test code = P/CRATIO) <200.0 mg/gcrea <200 LACTIC DEHYDROGENASE(LDH)2023-09-24 13:18:00* Test Item Value Reference Range Interpretation Comme nts LACTIC DEHYDROGENASE(LDH) (t est code = LDH) 114 units/L 81-234 N COMPREHENSIVE METABOLIC [id number] 13:18:00* Test Item Value Reference Range Interpretation Comme nts SODIUM (test code = NA) 133 mEq/L 135-145 L POTASSIUM (test code = K) 4.5 mEq/L 3.5-5.0 N CHLORIDE (test code = CL) 100 mEq/L 100-115 N CARBON DIOXIDE (test code = CO2) 26 mEq/L 22-31 N ANION GAP (test code = GAP) 11.40 10-20 N GLUCOSE (test code = GLU) 71 mg/dL 65-110 N BLOOD UREA NITROGEN (test code = BUN) 5 mg/dL 7-18 L GLOMERULAR FILTRATION RATE (test code = GFR) 129 ml/min >60 N The Glomerular Filtration Rate is a calculated parameterbased on serum Creatinine, patient age and sex. GFR valuesless than 60 mL/min/1.73 square meters are indicative ofChronic Kidney Disease. Values less than 15 mL/min/1.73square meters indicate Kidney failure. The calculation forGFR is based on the CKD-EPI (2020) calculation. This formulais race indifferent and is the recommended formula for GFRby the National Kidney Foundation for Adults.The GFR will not calculate if the sex is unknown or if thepatient's age is <18 years. CREATININE (test code = CREAT) 0.5 mg/dL 0.5-1.0 N TOTAL PROTEIN (test code = PROT) 6.9 gm/dL 6.3-8.2 N ALBUMIN (test code = ALB) 2.8 gm/dL 3.4-4.8 L CALCIUM (test code = CA) 10.2 mg/dL 8.4-10.2 N BILIRUBIN TOTAL (test code = BILT) 0.2 mg/dL 0.2-1.0 N SGOT/AST (test code = AST) 10 units/L 15-37 L SGPT/ALT (test code = ALT) 10 units/L 12-78 L ALKALINE PHOSPHATASE TOTAL (test code = ALKP) 112 units/L 46-116 N URIC [id number] 13:18:00* Test Item Value Reference Range Interpretation Comme nts URIC ACID (test code = URIC) 4.9 mg/dL 2.6-6.0 N FIRST TRIMESTER LESS THAN 14 WEEKS WITH [id number] 06:56:48Ordering physician: BRUCE LARA INDICATION: Early , vaginal bleeding COMPARISON: None TECHNIQUE: Grayscale and Doppler images of the pelvis were performed via atransabdominal and endovaginal approach. FINDINGS: There is a single live intrauterine gestation in variableposition. Estimated gestational age by crown-rump length is 13 weeks, 4days. cardiac rate is measured at 168 bpm. There is a low lyingposterior placenta with the tip approximately 8 mm from the internal os.The cervix is closed, measuring 3.8 cm in length. Amniotic fluid volume isgrossly within normal limits. The right ovary is obscured by overlyingbowel gas. The left ovary measures 2.7 x 1.6 x 2.3 cm. There is grosslypreserved color Doppler flow. There is questionable trace free fluid in theposterior cul-de-sac.[facility] Only)2023-05-24 06:30:00* Test Item Value Reference Range Interpretation Comme nts ABO & RH (test code = 20) O Positive [facility] BHCG (QUANTITATIVE)2023-05-24 05:40:59* Test Item Value Reference Range Interpretation Comme nts BETA HCG (test code = 4480965439) 05691.00 See_Comment [Automated messa ge] The system which generated this result transmitted reference range: Non- female and male patients: <5 mIU/mL. The reference range was not used to interpret this result as normal/abnormal. LUIS (test code = LUIS) Gestational Age ?Range (mIU/mL) 1-10 ?Weeks ?[id number] Weeks ?95986-76656978-63 Weeks ?7674-65803779-85 Weeks ?2907-402489 Biotin has been reported to cause a negative bias, interpret results relative to patient's use of biotin. [facility]ressPOHI [id number] 04:57:00* Test Item Value Reference Range Interpretation Comme nts POCT PREG (test code = 1605) Positive On board controls acceptable with C Line (test code = 3574) Yes POCT PREG LOT # (test code = 3575) 069908 POCT PREG TEST DATE ( test code = 3576) 08/04/2024 Lab Interpretation (test cod e = 20667-2) Normal [facility] Metabolic Panel (NA, K, CL, CO2, GLUCOSE, BUN, CREATININE, CA)2023-05-24 04:52:54* Test Item Value Reference Range Interpretation Comme nts NA (test code = 9970359277) 132 mmol/L 135-145 L K (test code = 6801264855) 4.0 mmol/L 3.5-5.0 CL (test code = 5174552911) 100 mmol/L 98-108 CO2 TOTAL (test code = 7489814465) 17 mmol/L 23-31 L AGAP (test code = 4966421865) 15 2-16 BUN (test code = 6364130238) 7 mg/dL 7-23 GLUCOSE (test code = 9362482498) 72 mg/dL 70-110 CREATININE (test code = 2966593488) 0.51 mg/dL 0.50-1.04 CALCIUM (test code = 1530383609) 10.7 mg/dL 8.6-10.6 H eGFR (test code = 49261-2) 128.2 mL/min/1.73m2 CKD-EPI eGFR (2020). Assuming creatinine has been stable day-to-day for at least three months, the eGFR indicates Category G1 (>= 90 mL/min/1.73 m2) Lab Interpretation (test code = 55503-4) Abnormal [facility] with [id number] 04:40:36* Test Item Value Reference Range Interpretation Comme nts WBC (test code = 6690-2) 11.64 See_Comment H [Automated messa ge] The system which generated this result transmitted reference range: 4.30 - 11.10 10*3/?L. The reference range was not used to interpret this result as normal/abnormal. RBC (test code = 789-8) 3.97 See_Comment [Automated [employer] ge] The system which generated this result transmitted reference range: 3.93 - 5.25 10*6/?L. The reference range was not used to interpret this result as normal/abnormal. HGB (test code = 718-7) 12.3 g/dL 11.6-15.0 HCT (test code = 4544-3) 35.3 % 35.7-45.2 L MCV (test code = 787-2) 88.9 fL 80.6-95.5 MCH (test code = 785-6) 31.0 pg 25.9-32.8 MCHC (test code = 786-4) 34.8 g/dL 31.6-35.1 RDW-SD (test code = 73998-1) 42.6 fL 39.0-49.9 RDW-CV (test code = 788-0) 13.1 % 12.0-15.5 PLT (test code = 777-3) 292 See_Comment [Automated messa ge] The system which generated this result transmitted reference range: 166 - 358 10*3/?L. The reference range was not used to interpret this result as normal/abnormal. MPV (test code = 56138-6) 10.2 fL 9.5-12.9 NRBC/100 WBC (test code = 6617397828) 0.0 See_Comment [Automated [employer] ssage] The system which generated this result transmitted reference range: 0.0 - 10.0 /100 WBCs. The reference range was not used to interpret this result as normal/abnormal. NRBC x10^3 (test code = 7904320009) See_Comment [Automated messa ge] The system which generated this result transmitted reference range: 10*3/?L. The reference range was not used to interpret this result as normal/abnormal. GRAN MAT (NEUT) % (test code = 770-8) 74.0 % IMM GRAN % (test code = 2998524845) 0.30 % LYMPH % (test code = 736-9) 19.8 % MONO % (test code = 5905-5) 4.3 % EOS % (test code = 713-8) 1.2 % BASO % (test code = 706-2) 0.4 % GRAN MAT x10^3(ANC) (test code = 7467471608) 8.61 10*3/uL 1.88-7.09 H IMM GRAN x10^3 (test code = 2240883778) 0.04 10*3/uL 0.00-0.06 LYMPH x10^3 (test code = 731-0) 2.30 10*3/uL 1.32-3.29 MONO x10^3 (test code = 742-7) 0.50 10*3/uL 0.33-0.92 EOS x10^3 (test code = 711-2) 0.14 10*3/uL 0.03-0.39 BASO x10^3 (test code = 704-7) 0.05 10*3/uL 0.01-0.07 Lab Interpretation (test code = 09789-9) Abnormal [facility] - ONCE JSPU7736-86-73 04:38:00 * Test Item Value Reference Range Interpretation Comme nts ABO & RH (test code = 20) O Positive IAT (test code = 1185) Negative [facility] Notes Date/Time Note Provider Source 2023-11-01 07:45:00 [id number] OXas29vW/ttMfeI RHNFuWeErbGEGie01eQblmfI2j+sPWHbno2 rwFCIz0535-25-39J14:45:00 [facility] ([facility])OB Postpart Progr NoteREPORT#:[id number] REPORT STATUS: SignedREPORT INITIALIZATION DATE:11/01/23 TIME: 744 PATIENT: LANEY YOUNG UNIT #: [id number]#: [id number] [address] [birth year] AGE: 32 SEX: F ATTEND: Matt Evans DOADM AUTHOR: Jessica Mensah MDREPT SERVICE DT/TIME: 11/01/23 0745* ALL edits or amendments must be made on the electronic/computer document * Subjective SubjectiveAdmission EGA: Weeks: 36 Days: 3EGA at delivery (wks/days): 36 weeksStatus/day: post (1)Patient reports: Patient reports: No: complaints. Objective Nursing Documentation ReviewNursing data:Vital SignsDate Temp Pulse Resp B/P B/P Mean Pulse Ox YpC342/-10/31 97.6-98.1 75-133 18 115-168/65-99 90.0-123.0 97-98 Physical ExamAbdomen: soft, no abnormal tenderness, no guardingUterus: involution appropriate, non-tenderLochia: normal Diagnosis, Assessment Plan Diagnosis, Assessment PlanAssessment: nml progressPlan: routine care, circumcision today, discharge today at 0745 RPT #:[id number] OF REPORT PRProgress hcgm0413-40-85N59:45:00F.TWLS742810 VAvailable for patient ppdjRPYTDKOQXQIJLE4200-23-81U57:46: 01 [facility] 2023-10-31 14:26:00 [id number] j59pGWPg0qI6Trk mZWZ6G0OIRHmP3wV0+RgR8jbSZfJUajB63i VC1DV76718-48-01W33:26:00 [facility] ([facility])OB Delivery NoteREPORT#:[id number] REPORT STATUS: SignedREPORT INITIALIZATION DATE:10/31/23 TIME: 1425 PATIENT: LANEY YOUNG UNIT #: [id number]#: [id number] [address] AGE: 32 SEX: F ATTEND: CristinaMatt DOADM AUTHOR: Jessica Mensah MDREPT SERVICE DT/TIME: 10/31/23 1426* ALL edits or amendments must be made on the electronic/computer document * OB Delivery Pre-deliveryAdmission EGA: Weeks: 36 Days: 3EGA at delivery (wks/days): 36 weeks Blood Loss/DetailsBlood loss at delivery: no more than expectedEBL at delivery (ml's): 100 Baby A InformationBaby A information Delivery date: 10/31/23 status: live born Wt of baby: not yet available Gender: male 1 minute: 8 5 minutes: 9 Presentation: vertex Vaginal Delivery Vaginal DeliveryVaginal delivery: Labor: augmented Medications/Devices used: oxytocin Vaginal delivery: spontaneous Amniotic fluid: clear Anesthesia type: epidural anesthesia Episiotomy: none Placenta: spontaneous, intact Post delivery meds used: oxytocin Mother's condition: mother stable 's condition: stable in room at 1427 RPT #:[id number] OF REPORT CLClinical xrkc6808-03-16Q78:26:00F.DJPH052980 5AVAvailable for patient flsuFDDQZDQWOEIBEG9773-62-58D57:28: 07 [facility] 2023-10-31 08:27:00 [id number] U2snUQ9W8oby7sn Cyd1qT1COfgvDMpLzmlFja0WSxmdEGk3VK5 AIDU7F2459-64-43A29:27:00 [facility])OB Admission / H PREPORT#:[id number] REPORT STATUS: SignedREPORT INITIALIZATION DATE:10/31/23 TIME: 826 PATIENT: LANEY YOUNG UNIT #: [id number]#: [id number] [facility] AGE: 32 SEX: F ATTEND: Matt Evans DOADM AUTHOR: Kimberly Su MDREPT SERVICE DT/TIME: 10/31/23826* ALL edits or amendments must be made on the electronic/computer document * OB HistoryChief complaint: uterine contractionsHPI:32 yo @ 36w5d with PNC c/b gHTN who presents with painful uterine ctx. Denies LOF. +FM. history: : 7 Term: 6 Living children: 6Current : Admission EGA (weeks) 36 Admission EGA (days) 3Labs: Blood type: O Rh: positive Rubella: non-immune Hepatitis B: negative HIV: negative STD: negative Syphilis: currently negative GBS: negative Past HistoryPast Medical History:Reports: Depression/mood disorder, Hypertension. Past Surgical History:Denies: Abdominal surgery. Family HistoryDenies: Diabetes, Hypertension. Additional Family Historymother lupusAlcohol Use Denies EtOH useDrug Use Denies recreational drugsSmoking status for patients 13 years old or older: Former SmokerAllergies:Coded Allergies:No Known Allergies (10/30/23) Objective GeneralVS:Last Documented: Result Date Time Temp 98.2 10/30 0700 B/P Mean 105.0 10/30 0628 B/P 135/86 / 0628 Pulse 84 / 0628 Resp 16 10/29 1850 Vital SignsDate Temp Pulse Resp B/P B/P Mean Pulse Ox WxU131/05-10/30 98.2-98.8 80-95 16 119-144/82-109 95.0-120.0 PATIENT WEIGHT: Weight (lb): Weight (oz): Weight (kg): 80.069614 Physical ExamAbdomen: gravid, no abnormal tendernessUterine activity: Monitor: toco Frequency (description): irregularPelvic exam: Pelvis clinically adequate: yes, inlet appears appropriate, pubic bone configappropr, no midpelvic contraction Vulvar lesions: none, no evidence herpetic les, no evidence of other STD Vagina: normal, non-septated, w/o apparent lesionsCervical/ exam: Dilatation (cm): 4 Effacement (%): 50 station: - 2Membranes: Membranes: IntactBaby A: Baby A baseline: 150 bpm Baby A variability: moderate 6-25 bpm Baby A accelerations: 15 X 15 Baby A decelerations: none Baby A FHR category: category 1 ResultsFindings/Data:Laboratory Tests: 10/29 2138 Hematology WBC (6.5 - 12.3 K/mm3) 12.7 H RBC (3.51 - 4.69 M/mm3) 4.16 Hgb (10.1 - 13.8 g/dL) 12.1 Hct (32.5 - 41.8 %) 35.5 MCV (84.6 - 96.6 fL) 85.3 MCH (27.3 - 33.9 pg) 29.1 MCHC (32.0 - 34.2 gm/dL) 34.1 RDW (12.2 - 16.3 %) 14.5 Plt Count (134 - 363 K/mm3) 299 MPV (9.2 - 12.7 fL) 11.1 Neut % (Auto) (57.9 - 77.3 %) 65.8 Lymph % (Auto) (14.5 - 29.7 %) 24.7 Iroquois % (Auto) (3.6 - 10.2 %) 6.6 Eos % (Auto) (0.0 - 3.0 %) 2.2 Baso % (Auto) (0.1 - 0.9 %) 0.3 Neut # (Auto) (K/mm3) 8.4 Lymph # (Auto) (K/mm3) 3.1 Iroquois # (Auto) (K/mm3) 0.8 Eos # (Auto) (K/mm3) 0.28 Baso # (Auto) (K/mm3) 0.0 Serology Treponema pallidum Ab (NONREACTIVE) NONREACTIVE Hep Bs Antigen (NONREACTIVE) NONREACTIVE Hepatitis C Antibody (NONREACTIVE) NONREACTIVE Hep C Ab Signal/Cutoff (<0.80) 0.08 HIV 1 2 Antibody (NONREACTIVE) NONREACTIVE Diagnosis, Assessment Plan Diagnosis, Assessment PlanFree Text A P:32 yo @ 36w5d with PNC c/b gHTN who is admitted in early labor.-FHTs category 1, reassuring.-Patient has not had cervical change for past few hours. Discussed AROM and pitocin. Will proceed with augmentation at this time.-BPS normal to mild range. PIH labs pending. Consider Mg for persistent severerange BPs or sx.-Epidural requested.-Anticipate , C/S for MFI. at 0831 RPT #:[id number] OF REPORT HPHistory and physical kmekklttvmq7883-81-51I11:27:00F.PDO [id number] for patient oxvfOIMJQLMEXYKWHI3874-07-81U39:31: 21 [facility] 2023-10-26 05:45:00 [id number] H0L/lUSv+Lulu/Fv Eup69F9A1ks8Ww6jbHgNB4Gnckk+aCtecw4 4VH2Y15124-49-95T98:45:00 [facility] ([facility])OB Antepartum Prog NoteREPORT#:[id number] REPORT STATUS: SignedREPORT INITIALIZATION DATE:10/26/23 TIME: 544 PATIENT: LANEY YOUNG UNIT #: [id number]#: [id number] ROOM/BED: [facility]-ADOB: [birth year] AGE: 33 SEX: F ATTEND: Matt Evans DOADM AUTHOR: Jessica Mensah MDREPT SERVICE DT/TIME: 10/26/23 0545* ALL edits or amendments must be made on the electronic/computer document * Subjective SubjectivePatient reports: Patient reports: Yes: headache. Comments:SUE is just a little less severe than at admission, she was able to sleep a bit. No labor complaints, good FM. Objective Nursing Documentation ReviewNursing data:Laboratory Tests: 10/24 10/24 1352 1352 Chemistry Sodium (136 - 145 mEq/L) 136 Potassium (3.4 - 4.5 mEQ/L) 3.8 Chloride (98 - 107 mEq/L) 107 Carbon Dioxide (22 - 31 mEq/L) 20 L Anion Gap (10 - 20) 12.8 BUN (8 - 23 mg/dL) 5 L Creatinine (0.55 - 1.02 mg/dL) 0.6 Glomerular Filtr Rate (>60 ml/min) 122.99 Glucose (74 - 106 mg/dL) 131 H Calcium (8.3 - 10.6 mg/dL) 9.8 Total Bilirubin (0.3 - 1.2 mg/dL) 0.3 AST (< 34 units/L) 13 ALT (10 - 49 units/L) <7 L Total Alk Phosphatase (46 - 116 units/L) 145 H Total Protein (5.7 - 8.2 g/dL) 7.0 Albumin (3.2 - 4.8 g/dL) 4.3 Hematology WBC (6.5 - 12.3 K/mm3) 10.3 RBC (3.51 - 4.69 M/mm3) 4.38 Hgb (10.1 - 13.8 g/dL) 12.5 Hct (32.5 - 41.8 %) 38.2 MCV (84.6 - 96.6 fL) 87.2 MCH (27.3 - 33.9 pg) 28.5 MCHC (32.0 - 34.2 gm/dL) 32.7 RDW (12.2 - 16.3 %) 14.0 Plt Count (134 - 363 K/mm3) 274 MPV (9.2 - 12.7 fL) 11.0 Neut % (Auto) (57.9 - 77.3 %) 71.9 Lymph % (Auto) (14.5 - 29.7 %) 20.5 Iroquois % (Auto) (3.6 - 10.2 %) 5.6 Eos % (Auto) (0.0 - 3.0 %) 1.4 Baso % (Auto) (0.1 - 0.9 %) 0.2 Neut # (Auto) (K/mm3) 7.4 Lymph # (Auto) (K/mm3) 2.1 Iroquois # (Auto) (K/mm3) 0.6 Eos # (Auto) (K/mm3) 0.14 Baso # (Auto) (K/mm3) 0.0 Urines Urine Color (YELLOW) YELLOW Urine Appearance (CLEAR) Slightly-Cloudy Urine pH (5 - 9) 6.0 Ur Specific Many (1.001 - 1.035) 1.009 Urine Protein (NEG) NEGATIVE Urine Glucose (UA) (NEG) NEGATIVE Urine Ketones (NEG) NEGATIVE Urine Blood (NEG) NEG Urine Nitrite (NEG) NEG Urine Bilirubin (NEG) NEGATIVE Urine Urobilinogen (NEG mg/dL) NEGATIVE Ur Leukocyte Esterase (NEG) NEG Urine RBC (NONE SEEN #/hpf) 0-2 Urine WBC (NONE SEEN #/hpf) 0-2 Ur Epithelial Cells (RARE - FEW #/HPF) MANY H Urine Bacteria (RARE - FEW /HPF) RARE Urine Mucus (NONE SEEN) RARE Ur Random Creatinine (mg/dL) 51 U Random Total Protein (mg/dL) 14 Protein/Creatinin Ratio (<200 mg/gcrea) 274.5 H Vital Signs Date Temp Pulse Resp B/P B/P Mean Pulse Ox FiO2 10/24 98.1 86-112 17 112-144/70-97 86.0-115.0 100 Cardiac: regular rate and rhythmLungs: clear to auscultationBaby A: Baby A baseline: 140 bpm Baby A variability: moderate 6-25 bpm Baby A accelerations: 15 X 15 Baby A decelerations: none Diagnosis, Assessment Plan Diagnosis, Assessment PlanAssessment: Severe SUE, no e/o preeclampsia. Pt has had HAs during this requiring admission. Plan: Will give imitrex PT consult at 0902 RPT #:[id number] OF REPORT PRProgress dxuh7986-66-11P93:45:00F.YSYQ410730 -0021AVAvailable for patient ltmmXSZJHKOVJAQHAA6905-49-40D59:02: 13 [facility] 2023-10-26 03:14:00 [id number] Ocf5HUVqKafp/RW wfO6gJ+rNYjejBuQtMSg2LGVXzU7JWOj58u MY6lQH8267-39-68O28:14:00 [facility] ([facility])DT History PhysicalREPORT#:[id number] REPORT STATUS: SignedREPORT INITIALIZATION DATE:10/26/23 TIME: 0314 PATIENT: LANEY YOUNG UNIT #: [id number]#: [id number] [address] [birth year] AGE: 33 SEX: F ATTEND: Matt Evans DOADM AUTHOR: Jessica Mensah MDREPT SERVICE DT/TIME: 10/26/23 3988* ALL edits or amendments must be made on the electronic/computer document * History PhysicalHistory PhysicalPI:32yo at 35w5d who presents today with headache and blurry vision. Says headache is throbbing 10/10, mostly on left side of head. Symptoms started earlier in the week but today has been worse than usual. Hx of HTN. Admitted forobs x2 per patient. Takes fioricet, has not taken it today, say it is not helping. Tylenol does not help either. +FM. Denies VB LOF ctx. Says she lives an hour away and drove herself here today, reports is out of town and will not be back until this evening. Past medical history: hypertensionPast surgical history: denies PSHAllergiesCoded Allergies:No Known Allergies (10/25/23) Review of SystemsRespiratory:Reports: SOB. Denies: non productive cough. Cardiovascular:Denies: chest pain, palpitations. GI:Denies: abdominal pain, diarrhea, nausea. :Denies: dysuria, flank pain, frequency. Objective GeneralVS:Last Documented: Result Date Time B/P Mean 105.0 10/24 1353 B/P 133/86 10/24 1353 Pulse 112 10/24 1353 Pulse Ox 100 10/24 1337 Resp 17 10/24 1337 Vital Signs Date Temp Pulse Resp B/P B/P Mean Pulse Ox FiO2 10/24 110-112 17 133-144/86-97 105.0-115.0 100 PATIENT WEIGHT: Weight (lb): Weight (oz): Weight (kg): 80.894976 Physical ExamHEENT: normocephalic w/o injury, pupils equalCardiac: regular rate and rhythmLungs: clear to auscultationAbdomen: gravid, no abnormal tenderness, no guardingMusculoskeletal: normal inspectionUterine activity: Monitor: toco Frequency (description): none FHR evaluation: Baseline: 140 bpm Variability: moderate 6-25 bpm Accelerations: 15 X 15 Decelerations: none FHR category: category 1Membranes: Membranes: Intact ResultsFindings/Data:Laboratory Tests: 10/24 10/24 1352 1352 Chemistry Sodium (136 - 145 mEq/L) 136 Potassium (3.4 - 4.5 mEQ/L) 3.8 Chloride (98 - 107 mEq/L) 107 Carbon Dioxide (22 - 31 mEq/L) 20 L Anion Gap (10 - 20) 12.8 BUN (8 - 23 mg/dL) 5 L Creatinine (0.55 - 1.02 mg/dL) 0.6 Glomerular Filtr Rate (>60 ml/min) 122.99 Glucose (74 - 106 mg/dL) 131 H Calcium (8.3 - 10.6 mg/dL) 9.8 Total Bilirubin (0.3 - 1.2 mg/dL) 0.3 AST (< 34 units/L) 13 ALT (10 - 49 units/L) <7 L Total Alk Phosphatase (46 - 116 units/L) 145 H Total Protein (5.7 - 8.2 g/dL) 7.0 Albumin (3.2 - 4.8 g/dL) 4.3 Hematology WBC (6.5 - 12.3 K/mm3) 10.3 RBC (3.51 - 4.69 M/mm3) 4.38 Hgb (10.1 - 13.8 g/dL) 12.5 Hct (32.5 - 41.8 %) 38.2 MCV (84.6 - 96.6 fL) 87.2 MCH (27.3 - 33.9 pg) 28.5 MCHC (32.0 - 34.2 gm/dL) 32.7 RDW (12.2 - 16.3 %) 14.0 Plt Count (134 - 363 K/mm3) 274 MPV (9.2 - 12.7 fL) 11.0 Neut % (Auto) (57.9 - 77.3 %) 71.9 Lymph % (Auto) (14.5 - 29.7 %) 20.5 Iroquois % (Auto) (3.6 - 10.2 %) 5.6 Eos % (Auto) (0.0 - 3.0 %) 1.4 Baso % (Auto) (0.1 - 0.9 %) 0.2 Neut # (Auto) (K/mm3) 7.4 Lymph # (Auto) (K/mm3) 2.1 Iroquois # (Auto) (K/mm3) 0.6 Eos # (Auto) (K/mm3) 0.14 Baso # (Auto) (K/mm3) 0.0 Urines Urine Color (YELLOW) YELLOW Urine Appearance (CLEAR) Slightly-Cloudy Urine pH (5 - 9) 6.0 Ur Specific Many (1.001 - 1.035) 1.009 Urine Protein (NEG) NEGATIVE Urine Glucose (UA) (NEG) NEGATIVE Urine Ketones (NEG) NEGATIVE Urine Blood (NEG) NEG Urine Nitrite (NEG) NEG Urine Bilirubin (NEG) NEGATIVE Urine Urobilinogen (NEG mg/dL) NEGATIVE Ur Leukocyte Esterase (NEG) NEG Urine RBC (NONE SEEN #/hpf) 0-2 Urine WBC (NONE SEEN #/hpf) 0-2 Ur Epithelial Cells (RARE - FEW #/HPF) MANY H Urine Bacteria (RARE - FEW /HPF) RARE Urine Mucus (NONE SEEN) RARE Ur Random Creatinine (mg/dL) 51 U Random Total Protein (mg/dL) 14 Protein/Creatinin Ratio (<200 mg/gcrea) 274.5 H Results: labs reviewed Diagnosis, Assessment Plan Diagnosis, Assessment PlanFree Text A P:32yo at 35w5d PIH- Admit for observation- Reglan and benadryl for headache- Monitor BPs and symptoms at 0902 RPT #:[id number] OF REPORT HPHistory and physical jhoyahlaeqj0060-65-05W23:14:00F.PDO [id number] for patient zuwpOLKUHVVJEASGOC6306-49-81S57:02: 13 [facility] 2023-10-25 14:04:00 [id number] Xg2RulDtf3/VHff zQCffyPsKzE649eLiJq5HNfUwHJM61hzzQ8 K/LY548757-25-70V35:04:00 [facility] ([facility])JONI Evaluation NoteREPORT#:[id number] REPORT STATUS: SignedREPORT INITIALIZATION DATE:10/25/23 TIME: 1403 PATIENT: LANEY YOUNG UNIT #: [id number]#: [id number] RO[facility]BED: [facility]-ADOB: [birth year] AGE: 32 SEX: F ATTEND: Matt Evans DOADM AUTHOR: Lia Butler MDREPT SERVICE DT/TIME: 10/25/23 1404* ALL edits or amendments must be made on the electronic/computer document * JNOI HistoryHPI:32yo at 35w5d who presents today with headache and blurry vision. Says headache is throbbing 10/10, mostly on left side of head. Symptoms started earlier in the week but today has been worse than usual. Hx of HTN. Admitted forobs x2 per patient. Takes fioricet, has not taken it today, say it is not helping. Tylenol does not help either. +FM. Denies VB LOF ctx. Says she lives an hour away and drove herself here today, reports is out of town and will not be back until this evening. Past medical history: hypertensionPast surgical history: denies PSHAllergiesCoded Allergies:No Known Allergies (10/25/23) Review of SystemsRespiratory:Reports: SOB. Denies: non productive cough. Cardiovascular:Denies: chest pain, palpitations. GI:Denies: abdominal pain, diarrhea, nausea. :Denies: dysuria, flank pain, frequency. Objective GeneralVS:Last Documented: Result Date Time B/P Mean 105.0 10/24 1353 B/P 133/86 10/24 1353 Pulse 112 10/24 1353 Pulse Ox 100 10/24 1337 Resp 17 10/24 1337 Vital Signs Date Temp Pulse Resp B/P B/P Mean Pulse Ox FiO2 10/24 110-112 17 133-144/86-97 105.0-115.0 100 PATIENT WEIGHT: Weight (lb): Weight (oz): Weight (kg): 80.161682 Physical ExamHEENT: normocephalic w/o injury, pupils equalCardiac: regular rate and rhythmLungs: clear to auscultationAbdomen: gravid, no abnormal tenderness, no guardingMusculoskeletal: normal inspectionUterine activity: Monitor: toco Frequency (description): none FHR evaluation: Baseline: 140 bpm Variability: moderate 6-25 bpm Accelerations: 15 X 15 Decelerations: none FHR category: category 1Membranes: Membranes: Intact ResultsFindings/Data:Laboratory Tests: 10/24 10/24 1352 1352 Chemistry Sodium (136 - 145 mEq/L) 136 Potassium (3.4 - 4.5 mEQ/L) 3.8 Chloride (98 - 107 mEq/L) 107 Carbon Dioxide (22 - 31 mEq/L) 20 L Anion Gap (10 - 20) 12.8 BUN (8 - 23 mg/dL) 5 L Creatinine (0.55 - 1.02 mg/dL) 0.6 Glomerular Filtr Rate (>60 ml/min) 122.99 Glucose (74 - 106 mg/dL) 131 H Calcium (8.3 - 10.6 mg/dL) 9.8 Total Bilirubin (0.3 - 1.2 mg/dL) 0.3 AST (< 34 units/L) 13 ALT (10 - 49 units/L) <7 L Total Alk Phosphatase (46 - 116 units/L) 145 H Total Protein (5.7 - 8.2 g/dL) 7.0 Albumin (3.2 - 4.8 g/dL) 4.3 Hematology WBC (6.5 - 12.3 K/mm3) 10.3 RBC (3.51 - 4.69 M/mm3) 4.38 Hgb (10.1 - 13.8 g/dL) 12.5 Hct (32.5 - 41.8 %) 38.2 MCV (84.6 - 96.6 fL) 87.2 MCH (27.3 - 33.9 pg) 28.5 MCHC (32.0 - 34.2 gm/dL) 32.7 RDW (12.2 - 16.3 %) 14.0 Plt Count (134 - 363 K/mm3) 274 MPV (9.2 - 12.7 fL) 11.0 Neut % (Auto) (57.9 - 77.3 %) 71.9 Lymph % (Auto) (14.5 - 29.7 %) 20.5 Iroquois % (Auto) (3.6 - 10.2 %) 5.6 Eos % (Auto) (0.0 - 3.0 %) 1.4 Baso % (Auto) (0.1 - 0.9 %) 0.2 Neut # (Auto) (K/mm3) 7.4 Lymph # (Auto) (K/mm3) 2.1 Iroquois # (Auto) (K/mm3) 0.6 Eos # (Auto) (K/mm3) 0.14 Baso # (Auto) (K/mm3) 0.0 Urines Urine Color (YELLOW) YELLOW Urine Appearance (CLEAR) Slightly-Cloudy Urine pH (5 - 9) 6.0 Ur Specific Many (1.001 - 1.035) 1.009 Urine Protein (NEG) NEGATIVE Urine Glucose (UA) (NEG) NEGATIVE Urine Ketones (NEG) NEGATIVE Urine Blood (NEG) NEG Urine Nitrite (NEG) NEG Urine Bilirubin (NEG) NEGATIVE Urine Urobilinogen (NEG mg/dL) NEGATIVE Ur Leukocyte Esterase (NEG) NEG Urine RBC (NONE SEEN #/hpf) 0-2 Urine WBC (NONE SEEN #/hpf) 0-2 Ur Epithelial Cells (RARE - FEW #/HPF) MANY H Urine Bacteria (RARE - FEW /HPF) RARE Urine Mucus (NONE SEEN) RARE Ur Random Creatinine (mg/dL) 51 U Random Total Protein (mg/dL) 14 Protein/Creatinin Ratio (<200 mg/gcrea) 274.5 H Results: labs reviewed Diagnosis, Assessment Plan Diagnosis, Assessment PlanFree Text A P:32yo at 35w5d PIH- Admit for observation- Reglan and benadryl for headache- Monitor BPs and symptoms- Discussed with Dr. Mensah at 1518 RPT #:[id number] OF REPORT CLClinical jpcd9831-07-73D55:04:00F.ZMDG004511 31-5460AVAvailable for patient bxrbHVPIKIEHHPPYTC6720-98-72M65:19: 12 [facility] 2023-10-02 13:15:00 [id number] kTh4U8N+HdhVatt pgwqF47+fK/X8uS0AH9m3SzM6B4RfmsEzZj 5GlfjI5948-59-86T41:15:00 [facility] ([facility])MFM Consultation NoteREPORT#:[id number] REPORT STATUS: SignedREPORT INITIALIZATION DATE:10/02/23 TIME: 1314 PATIENT: LANEY YOUNG UNIT #: [id number]#: [id number] [address] [birth year] AGE: 32 SEX: F ATTEND: Matt Evans DOADM AUTHOR: Goldie Dyson MDREPT SERVICE DT/TIME: 10/02/23 1315* ALL edits or amendments must be made on the electronic/computer document * History of Present Illness HPIRequesting clinician: Dr. Hilario for consult:Concern for elevated blood pressures, rule out preeclampsia Chief complaint:The patient is a at 32w4d by established EDC, who presented to OB officevisit with complaint of elevated blood pressures and headache. She was admitted for observation, BP monitoring and laboratory evaluation to rule out preeclampsia. Since admission reports a headache which comes and goes but denies vision changes or RUQ pain. Her blood pressure has been normal . history: : 7 Term: 6 : 0 Abortus: 0 Living children: 6 Complications (prev preg): preeclampsia Previous : noneCurrent : Best EDC: 11/23/23 Admission EGA (weeks) 32 Admission EGA (days) 3 EDC based on: LMPConditions of : anemia, HTN-gestationalLabs: Blood type: O Rh: positive Rubella: non-immune Hepatitis B: negative HIV: negative STD: negative Syphilis: currently negative GBS: unknownProcedures: noneGenetic testing: none Past HistoryAlcohol Use Denies EtOH useDrug Use Denies recreational drugsSmoking status for patients 13 years old or older: Never SmokerAllergies:Coded Allergies:No Known Allergies (09/24/23) History Past HistoryAllergies:Coded Allergies:No Known Allergies (10/01/23) Objective Physical ExamVS/I O:Vital SignsDate Temp Pulse Resp B/P B/P Mean Pulse Ox HoK970/-10/01 97.8-98.3 78-110 18-20 107-127/58-77 80.0-93.0 98-100 Last Documented: Result Date Time B/P Mean 83.0 10/01 1230 B/P 108/68 10/01 1230 Pulse 93 10/01 1230 Pulse Ox 100 10/01 0840 Temp 97.8 09/30 2100 Resp 20 09/30 2100 24 hour I O ending at 0700: 10/01 0700 09/30 1900 Intake Total Output Total Balance Patient 377 lb Weight PATIENT WEIGHT: Weight (lb): 376Weight (oz): 15.85Weight (kg): 171.000 General appearance: alert, awake, oriented, no acute distressCardiovascular: regular rateRespiratory: no distress, aerating well, non labored respirations Abdomen: non-tender, soft, no guarding, no mass/organomegaly, no rebound, no RUQpain .Neuro/[facility]: alert, oriented x 3, normal speechPsychiatry: normal affectFetal heart rate:Baby A: Baby A baseline: 135 bpm Baby A variability: moderate 6-25 bpm Baby A accelerations: 15 X 15 Baby A decelerations: none Baby A FHR category: category 1Findings/data: heart rate pattern: category I ResultsFindings/Data:Laboratory Tests 10/01 1919 Chemistry Sodium (135 - 145 mEq/L) 138 Potassium (3.5 - 5.0 mEq/L) 3.8 Chloride (100 - 115 mEq/L) 101 Carbon Dioxide (22 - 31 mEq/L) 26 Anion Gap (10 - 20) 14.80 BUN (7 - 18 mg/dL) 6 L Creatinine (0.5 - 1.0 mg/dL) 0.6 Glomerular Filtr Rate (>60 ml/min) 123 Glucose (65 - 110 mg/dL) 93 Calcium (8.4 - 10.2 mg/dL) 10.0 Total Bilirubin (0.2 - 1.0 mg/dL) 0.2 Direct Bilirubin (<0.2 mg/dL) <0.2 AST (15 - 37 units/L) 13 L ALT (12 - 78 units/L) 19 Total Alk Phosphatase (46 - 116 units/L) 116 Total Protein (6.3 - 8.2 gm/dL) 7.7 Albumin (3.4 - 4.8 gm/dL) 3.0 L Laboratory Tests 10/01 1919 Hematology WBC (6.5 - 12.3 K/mm3) 10.6 RBC (3.51 - 4.69 M/mm3) 4.25 Hgb (10.1 - 13.8 g/dL) 12.7 Hct (32.5 - 41.8 %) 37.5 MCV (84.6 - 96.6 fL) 88.2 MCH (27.3 - 33.9 pg) 29.9 MCHC (32.0 - 34.2 gm/dL) 33.9 RDW (12.2 - 16.3 %) 14.9 Plt Count (134 - 363 K/mm3) 352 MPV (9.2 - 12.7 fL) 11.4 Neut % (Auto) (57.9 - 77.3 %) 70.7 Lymph % (Auto) (14.5 - 29.7 %) 21.9 Iroquois % (Auto) (3.6 - 10.2 %) 5.8 Eos % (Auto) (0.0 - 3.0 %) 0.9 Baso % (Auto) (0.1 - 0.9 %) 0.3 Neut # (Auto) (K/mm3) 7.5 Lymph # (Auto) (K/mm3) 2.3 Iroquois # (Auto) (K/mm3) 0.6 Eos # (Auto) (K/mm3) 0.10 Baso # (Auto) (K/mm3) 0.0 Laboratory Tests 10/01 1919 Serology Treponema pallidum Ab (NONREACTIVE) NONREACTIVE Hep Bs Antigen (NONREACTIVE) NONREACTIVE Hepatitis C Antibody (NONREACTIVE) NONREACTIVE Hep C Ab Signal/Cutoff (<0.80) 0.06 HIV 1 2 Antibody (NONREACTIVE) NONREACTIVE Radiology data:Recent Impressions:ULTRASOUND - US PREG UT TRANSVAGINAL 09/30 1733 Report Impression - Status: SIGNED Entered: 10/01/20232043 IMPRESSION: Viable single intrauterine with a biophysical profile 8 outof 8.Impression By: Jerrod Ho M.D.ULTRASOUND - US FET BIO PH NM W/O NST 09/30 1733 Report Impression - Status: SIGNED Entered: 10/01/20232043 IMPRESSION: Viable single intrauterine with a biophysical profile 8 outof 8.Impression By: Jerrod Ho M.D. Diagnosis, Assessment Plan Diagnosis, Assessment PlanFree Text A P:The patient is a at 32w4d by established EDC, who was admitted for BP monitoring and evaluation of preeclampsia due to reported elevated blood pressures and intermittent headaches, 1. Concern for preeclampsia - afebrile/VSS- normotensive with no elevated BPs- per discussion with Dr. Evans pt had one elevated BP in office - CBC/CMP/UPCR wnl - discussed history of preeclmapsia in last two pregnancies and increased risks for preeclampsia and adverse outcome during this - reviewed although she is increased risk she does not meet diagnostic criteria for preeclampsia at this time or hypertensive disease of . - we reviewed our recommendations for close outpatient surveillance, with seriallab assessment, serial growth studies and ambulatory BP logs - if she has greater than 2 elevated blood pressures after 20 weeks gestational age, she does meet the criteria for at least gestational hypertension and will need to have a lab evaluation including CBC/CMP and UPCR as well as evaluation of symptoms associated with severe disease.- At this time she was counseled on close monitoring of symptoms and ambulatory blood pressure logs. - she was also counseled regarding her intermittent headaches, to monitor any associated neurologic symptoms and to return to the hospital if she has any of these. She is stable for discharge home with close outpatient follow up as noted above,and precautions as noted above. Discussed with Dr. Cristina Dyson MDMaternal Medicine . at 1556 [facility] #:[id number] OF REPORT CTIjxrovhhehcr8506-43-66M41:15:00F. [id number] for patient gwubNYTCYUSJUGXCQJ5639-12-28R10:56: 26 [facility] 2023-10-02 09:23:00 [id number] 7tQvwjZhv8CHHTk 6a7ea7py034Gd6Mv3QvkY5d2Ta/bacoEBE2 HtD+eE0591-56-12S02:23:00 [facility] ([facility])OB Antepartum Prog NoteREPORT#:[id number] REPORT STATUS: SignedREPORT INITIALIZATION DATE:10/02/23 TIME: 922 PATIENT: LANEY YOUNG UNIT #: [id number]#: [id number] [address] [birth year] AGE: 32 SEX: F ATTEND: Matt Evans DOADM AUTHOR: Matt Evans DOREPT SERVICE DT/TIME: 10/02/23922* ALL edits or amendments must be made on the electronic/computer document * Subjective SubjectiveAdmission EGA: Weeks: 32 Days: 3Patient reports: Patient reports: Yes no complaints, Yes normal movement, Yes headache, No leaking fluid,No contractions, No blurred vision, No scotomata ObjectiveVS:Last Documented: Result Date Time B/P Mean 93.0 10/01 0841 B/P 118/77 10/01 0841 Pulse 85 10/01 0841 Pulse Ox 100 10/01 0840 Temp 97.8 09/30 2101 Resp 20 09/30 2101 Vital SignsDate Temp Pulse Resp B/P B/P Mean Pulse Ox SrV303/07-/08 97.8-98.3 78-110 18-20 107-127/58-77 80.0-93.0 98-100 PATIENT WEIGHT: Weight (lb): 376Weight (oz): 15.85Weight (kg): 171.000 Membranes: IntactUterine activity: Monitor: toco Frequency (description): noneAbdomen: gravid, no abnormal tenderness, no guardingBaby A: Baby A baseline: 135 bpm Baby A variability: moderate 6-25 bpm Baby A accelerations: 15 X 15 Baby A decelerations: none Baby A FHR category: category 1Findings/data:Laboratory Tests: 10/01 1919 Chemistry Sodium (135 - 145 mEq/L) 138 Potassium (3.5 - 5.0 mEq/L) 3.8 Chloride (100 - 115 mEq/L) 101 Carbon Dioxide (22 - 31 mEq/L) 26 Anion Gap (10 - 20) 14.80 BUN (7 - 18 mg/dL) 6 L Creatinine (0.5 - 1.0 mg/dL) 0.6 Glomerular Filtr Rate (>60 ml/min) 123 Glucose (65 - 110 mg/dL) 93 Calcium (8.4 - 10.2 mg/dL) 10.0 Total Bilirubin (0.2 - 1.0 mg/dL) 0.2 Direct Bilirubin (<0.2 mg/dL) <0.2 AST (15 - 37 units/L) 13 L ALT (12 - 78 units/L) 19 Total Alk Phosphatase (46 - 116 units/L) 116 Total Protein (6.3 - 8.2 gm/dL) 7.7 Albumin (3.4 - 4.8 gm/dL) 3.0 L Hematology WBC (6.5 - 12.3 K/mm3) 10.6 RBC (3.51 - 4.69 M/mm3) 4.25 Hgb (10.1 - 13.8 g/dL) 12.7 Hct (32.5 - 41.8 %) 37.5 MCV (84.6 - 96.6 fL) 88.2 MCH (27.3 - 33.9 pg) 29.9 MCHC (32.0 - 34.2 gm/dL) 33.9 RDW (12.2 - 16.3 %) 14.9 Plt Count (134 - 363 K/mm3) 352 MPV (9.2 - 12.7 fL) 11.4 Neut % (Auto) (57.9 - 77.3 %) 70.7 Lymph % (Auto) (14.5 - 29.7 %) 21.9 Iroquois % (Auto) (3.6 - 10.2 %) 5.8 Eos % (Auto) (0.0 - 3.0 %) 0.9 Baso % (Auto) (0.1 - 0.9 %) 0.3 Neut # (Auto) (K/mm3) 7.5 Lymph # (Auto) (K/mm3) 2.3 Iroquois # (Auto) (K/mm3) 0.6 Eos # (Auto) (K/mm3) 0.10 Baso # (Auto) (K/mm3) 0.0 Serology Treponema pallidum Ab (NONREACTIVE) NONREACTIVE Hep Bs Antigen (NONREACTIVE) NONREACTIVE Hepatitis C Antibody (NONREACTIVE) NONREACTIVE Hep C Ab Signal/Cutoff (<0.80) 0.06 HIV 1 2 Antibody (NONREACTIVE) NONREACTIVE Recent Impressions:ULTRASOUND - US PREG UT TRANSVAGINAL 09/30 1733 Report Impression - Status: SIGNED Entered: 10/01/20232043 IMPRESSION: Viable single intrauterine with a biophysical profile 8 outof 8.Impression By: Jerrod Ho M.D.ULTRASOUND - US FET BIO PH NM W/O NST 09/30 1733 Report Impression - Status: SIGNED Entered: 10/01/20232043 IMPRESSION: Viable single intrauterine with a biophysical profile 8 outof 8.Impression By: Jerrod Ho M.D. Diagnosis, Assessment Plan Diagnosis, Assessment PlanAssessment: hypertensionPlan: continue current managmnt, 24hr urine pending, MFM consult pending. [place] PRN headache Will monitor symptoms at this time at 0924 RPT #:[id number] OF REPORT PRProgress szcs4759-64-35F75:23:00F.[id number] VAvailable for patient zyblKSYSEFSVOHMCNV8683-06-24B55:25: 15 [facility] 2023-10-01 16:52:00 [id number] soUt16hTLVZRI36 0nIVIblTJiQ5AICSLXuInyO8oQczhQoF5aK 9Q4b4F8791-66-35V27:52:00 [facility] ([facility])OB Admission / H PREPORT#:[id number] REPORT STATUS: SignedREPORT INITIALIZATION DATE:10/01/23 TIME: 1651 PATIENT: LANEY YOUNG UNIT #: [id number]#: [id number] ROOM/BED: [facility]-ADOB: [birth year] AGE: 32 SEX: F ATTEND: Matt Evans DOADM AUTHOR: Matt Evans DOREPT SERVICE DT/TIME: 10/01/231651* ALL edits or amendments must be made on the electronic/computer document * OB HistoryChief complaint: elevated blood pressureHPI: @ 32w3d who presents to OB office visit with complaint of elevated bloodpressures and headache. history: : 7 Term: 6 : 0 Abortus: 0 Living children: 6 Complications (prev preg): preeclampsia Previous : noneCurrent : Best EDC: 11/23/23 Admission EGA (weeks) 32 Admission EGA (days) 3 EDC based on: LMPConditions of : anemia, HTN-gestationalLabs: Blood type: O Rh: positive Rubella: non-immune Hepatitis B: negative HIV: negative STD: negative Syphilis: currently negative GBS: unknownProcedures: noneGenetic testing: none Past HistoryAlcohol Use Denies EtOH useDrug Use Denies recreational drugsSmoking status for patients 13 years old or older: Never SmokerAllergies:Coded Allergies:No Known Allergies (09/24/23) Review of SystemsAll systems rev neg: except as marked Objective GeneralVS:PATIENT WEIGHT: Weight (lb): Weight (oz): Weight (kg): Physical ExamAbdomen: gravid, no abnormal tenderness, no guardingUterine activity: Monitor: toco Frequency (description): nonePelvic exam: Pelvis clinically adequate: yes, inlet appears appropriate, pubic bone configappropr, no midpelvic contraction Vulvar lesions: noneMembranes: Membranes: IntactBaby A: Baby A baseline: 135 bpm Baby A variability: moderate 6-25 bpm Baby A accelerations: 15 X 15 Baby A decelerations: none Baby A FHR category: category 1 Diagnosis, Assessment Plan Diagnosis, Assessment PlanAssessment/Impression: hypertension-gestationalPlan: admit to observation, preeclampsia precautions at 1703 RPT #:[id number] OF REPORT HPHistory and physical pnaatwespop7757-39-00Q48:52:00F.PDO [id number] for patient hkisTHGABSDFYPHMXU2085-13-13Q46:03: 22 [facility] 2023-05-24 01:24:33 4376-40-05P19:24:33F ormatting of this note might be different from the original.Pt given printed and verbal discharge instructions regarding vaginal bleeding before 22 weeks gestation and vaginal bleedingPt verbalized understanding of instructions, pt awake alert oriented, resp reg unlabored, skin w/d, color appropriate for race, moves all ext well,pt encouraged to follow up with pcpAdvised to seek medical attention for new/prolonged/worsening of symptomsNo adverse reaction to meds given in ER noted upon dischargePIV d'cd, dressing to site, catheter in tact.Awake, alert oriented, resp reg unlabored, skin w/d, pt leaving amb with steady gait, in no apparent distress 39586-4Byxqrmqpl department LwgtQA0061-19-75D86:25:23[facility] NoteTXT1.2.840.442951.1.13.104.2.7. 2.870220|[id number] for patient qida71743-4ZjheOPYRHBBFNKPGlenswnim C-CDA narrative [id number] A Diaz RN[address] Kx[id number] 9JXKYECJULJTBXRPMXTGHLK7257-50-42R6 1:25:231.2.840.547477.1.72.3.15|1.2 .840.925402.1.13.104.2.7.2.727879_1 [id number] Mary Ann Babin RN [facility] 2023-05-24 00:00:05 0752-51-52J00:00:05F ormatting of this note might be different from the original.Nurse ReportReport given to LOIS Interiano. Chief complaint, assessment findings, and orders reviewed. Plan of care discussed [place] [address]-6Hucgswnuu department SnybLP8508-05-83D32:01:04[facility] NoteTXT1.2.840.714348.1.13.104.2.7. 2.386462|[id number] for patient pave01154-5XpkiZZCUIMSHOMEFwplqkeos C-CDA narrative [id number] Rodolfo Ishan RNUT[address] Qf[id number] 6YIJDJUNMUZMHWQCFAMLSXV7924-72-53S1 0:01:041.2.840.609397.1.72.3.15|1.2 .840.975542.1.13.104.2.7.2.727879_1 [id number] Lynda Olmstead RN [facility] 2023-05-23 23:59:43 2060-36-59V15:59:43F ormatting of this note might be different from the original.US at bedside. 17720-9Ugqdkmuaa department PozzIC7319-53-48Q56:00:02[facility] NoteTXT1.2.840.332428.1.13.104.2.7. 2.679925|[id number] for patient xtdp25121-6IazbPRLXSKYXCGQNyducwnhf C-CDA narrative text[address] StreetSd[id number] 8NTQFEKDBSPGOBOJZJUWJJL2312-13-60L8 0:00:021.2.840.876903.1.72.3.15|1.2 .840.204899.1.13.104.2.7.2.727879_1 [id number] [facility] 2023-05-23 23:07:15 0230-73-90Y95:07:15S ummary: US Called out US ETA 1hr 11148-5Nmhmitwmk qqthOC4239-29-04G21:07:41Procedure noteTXT1.2.840.550659.1.13.104.2.7. 2.208592|[id number] for patient gkui80101-7BfifGUDWNZEHPMZIzwfpmqfm C-CDA narrative [id number] Good[address] [id number] 4LZHRVTWJAGHVDPTKIRMAQQ6892-74-58C4 3:07:411.2.840.308530.1.72.3.15|1.2 .840.503549.1.13.104.2.7.2.727879_1 [id number] Lorena Cruz [facility] 2023-05-23 22:22:27 5216-84-61O12:22:27F ormatting of this note might be different from the original.Pt arrived via EMS for vaginal bleeding. Pt is approx 13 weeks and began bleeding and passing large clots after having intercourse. LMP 02/15/23EMS found HR in route at 160bpm.Pt has pain in lower abdomen now and reports a hard ball like area.Received 12.5 phenergan in routeHx: Anxiety, HTN 00800-9Lfuxhpsoj department Triage gzopNL1526-59-94D03:24:28Emergency department Triage noteTXT1.2.840.809128.1.13.104.2.7. 2.255883|[id number] for patient qcsd05844-6Kcmntatpk department NoteLNNARRATIVEFormatted C-CDA narrative text[id number] 8SXYZXOLNHMUYMPIWYPQUKA3746-47-65E8 2:24:281.2.840.756541.1.72.3.15|1.2 .840.259892.1.13.104.2.7.2.727879_1 [id number] [facility] 2023-05-23 22:22:00 1358-29-87C23:22:00F ormatting of this note is different from the original.[facility] Emergency Department NotePatient Name: Laney Ascencio of : 1990 32 year old femaleTreatment Room: Room/bed info not foundMedical Record Number: [id number] Care Physician: No primary care provider on file.Patient Escorted by: Self [9]Mode of Arrival: EMS - [place] [51]EMS 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 Pt reports passing large clots as well as what appeared to be tissues. Also has pain to left suprapubic region rated 6/10. Pt is currently 13 weeks and 2 days . 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 [facility] provided by: Medical records, spouse and patientLanguage area captain used: NoVaginal Bleeding-Quality: Passed tissue and clotsSeverity: ModerateOnset quality: SuddenDuration: 1 dayTiming: SporadicChronicity: NewPrior : yesPregnancy confirmed by ultrasound: yesPrenatal care: Regular careContext: after intercourse and spontaneouslyContext: not genital traumaRelieved by: None triedWorsened by: NothingIneffective treatments: None triedAssociated symptoms: abdominal painAssociated symptoms: no back pain, no dizziness, no dyspareunia, no dysuria, no fatigue, no fever, no nausea and no vaginal dischargeRisk factors: no bleeding disorder, no gynecological surgery, no hx of ectopic , no hx of endometriosis, does not have multiple partners, no new sexual partner, no ovarian cysts, no ovarian torsion, no PID, no prior miscarriage, no STD, no STD exposure and no terminated pregnancyPast Medical History/Immunizations:NoneTetanus received in last 5 years: UnknownAllergies:No Known AllergiesPast Social History:Substance & Sexual ActivityNo substance use or sexual activity history on file.Past Surgical History:noneReview of Systems:Review of SystemsConstitutional: Negative. Negative for fatigue and fever.HENT: Negative.Eyes: Negative.Respiratory: Negative.Breasts: Negative.Cardiovascular: Negative.Gastrointestinal: Positive for abdominal pain. Negative for abdominal distention, anal bleeding, blood in stool, constipation, diarrhea, nausea, rectal pain and vomiting.Genitourinary: Positive for vaginal bleeding. Negative for dysuria, vaginal discharge, vaginal pain and dyspareunia.Musculoskeletal: Negative. Negative for back pain.Skin: Negative.Neurological: Negative. Negative for dizziness.Psychiatric/Behavioral: Negative.All other systems reviewed and are negative.Endocrine: Endocrine negativePhysical Exam:ED Triage Vitals [05/23/234]Weight 61.2 kg (135 lb)Actual or estimated Estimated by patient/family reportHeight 1.626 m (5' 4")BP (!) 143/99Pulse 99Resp 20Temp 37.2 ?C (98.9 ?F)Temp source OralSpO2 95 %Measured on Room airPhysical ExamVitals and nursing note reviewed.Constitutional:General: She is not in acute distress.Appearance: Normal appearance. She is well-developed and normal weight. She is not ill-appearing or toxic-appearing.HENT:Head: Normocephalic and atraumatic.Right Ear: External ear normal.Left Ear: External ear normal.Nose: Nose normal.Mouth/Throat:Pharynx: No oropharyngeal exudate.Eyes:General: No scleral icterus.Right eye: No discharge.Left eye: No discharge.Conjunctiva/sclera: Conjunctivae normal.Pupils: Pupils are equal, round, and reactive to light.Neck:Thyroid: No thyromegaly.Cardiovascular:Rate and Rhythm: Normal rate and regular rhythm.Pulses: Normal pulses.Heart sounds: Normal heart sounds. No murmur heard.Pulmonary:Effort: Pulmonary effort is normal. No respiratory distress.Breath sounds: Normal breath sounds. No stridor. No wheezing or rales.Chest:Chest wall: No tenderness.Abdominal:General: Bowel sounds are normal. There is no distension.Palpations: Abdomen is soft. There is no mass.Tenderness: There is abdominal tenderness. There is no right CVA tenderness, left CVA tenderness, guarding or rebound.Hernia: No hernia is present.Comments: Mild TTP LLQMusculoskeletal:General: No swelling, tenderness, deformity or signs of injury. Normal range of motion.Cervical back: Normal range of motion and neck supple. No rigidity or tenderness.Right lower leg: No edema.Left lower leg: No edema.Lymphadenopathy:Cervical: No cervical adenopathy.Skin:General: Skin is warm and dry.Capillary Refill: Capillary refill takes less than 2 seconds.Coloration: Skin is not jaundiced or pale.Findings: No bruising, erythema, lesion or rash.Neurological:General: No focal deficit present.Mental Status: She is alert and oriented to person, place, and time.Cranial Nerves: No cranial nerve deficit.Sensory: No sensory deficit.Motor: No weakness or abnormal muscle tone.Coordination: Coordination normal.Gait: Gait normal.Deep Tendon Reflexes: Reflexes normal.Psychiatric:Behavior: Behavior normal.Thought Content: Thought content normal.Judgment: Judgment normal.Radiology:US FIRST TRIMESTER LESS THAN 14 WEEKS WITH TRANSVAGINALFinal ResultOrdering physician: BRUCE LARAINDICATION: Early , vaginal bleedingCOMPARISON: NoneTECHNIQUE: Grayscale and Doppler images of the pelvis were performed via atransabdominal and endovaginal approach.FINDINGS: There is a single live intrauterine gestation in variableposition. Estimated gestational age by crown-rump length is 13 weeks, 4days. cardiac rate is measured at 168 bpm. There is a low lyingposterior placenta with the tip approximately 8 mm from the internal os.The cervix is closed, measuring 3.8 cm in length. Amniotic fluid volume isgrossly within normal limits. The right ovary is obscured by overlyingbowel gas. The left ovary measures 2.7 x 1.6 x 2.3 cm. There is grosslypreserved color Doppler flow. There is questionable trace free fluid intheposterior cul-de-sac.IMPRESSIONSingle live intrauterine gestation in variable position, approximately 13weeks, 4 days by ultrasound measurements, for an ultrasound MARU of11/24/2023.Low lying posterior placenta without ultrasound evidence for placentaprevia or abruption.Grossly normal amniotic fluid level.Trace free fluid in the maternal posterior cul-de-sac.RL: 460AF: [id number] signed by Rosi Johnson MD, PhD at 05/24/2023 12:56 AMLab Results:Lab ResultsURINALYSIS - AbnormalResult Value Ref RangeAPPEARANCE Turbid (*) ClearCOLOR Red (*) YellowPH 6.0 4.8 - 8.0SP GRAVITY >1.030 (*) 1.003 - 1.030GLU U QUAL Negative NegativeBLOOD Large (*) NegativeKETONES >80 mg/dL (*) NegativePROTEIN >300 mg/dL (*) NegativeUROBILIN 0.2 mg/dL 0-1.0 mg/dLBILIRUBIN Negative NegativeNITRITE Negative NegativeLEUK UMBERTO Negative NegativeRBC/HPF >182 (*) 0 - 3 HPFWBC/HPF >182 (*) 0 - 5 HPFBACTERIA Negative NegativeSQ EPITH 15 HPFWBC CLUMPS >182 (*) <=1 HPFCBC WITH DIFF - AbnormalWBC 11.64 (*) 4.30 - 11.10 10*3/?LRBC 3.97 3.93 - 5.25 10*6/?LHGB 12.3 11.6 - 15.0 g/dLHCT 35.3 (*) 35.7 - 45.2 %MCV 88.9 80.6 - 95.5 fLMCH 31.0 25.9 - 32.8 pgMCHC 34.8 31.6 - 35.1 g/dLRDW-SD 42.6 39.0 - 49.9 fLRDW-CV 13.1 12.0 - 15.5 %PLT 292 166 - 358 10*3/?LMPV 10.2 9.5 - 12.9 fLNRBC/100 WBC 0.0 0.0 - 10.0 /100 WBCsNRBC x10^3 <0.01 10*3/?LGRAN MAT (NEUT) % 74.0 %IMM GRAN % 0.30 %LYMPH % 19.8 %MONO % 4.3 %EOS % 1.2 %BASO % 0.4 %GRAN MAT x10^3(ANC) 8.61 (*) 1.88 - 7.09 10*3/uLIMM GRAN x10^3 0.04 0.00 - 0.06 10*3/uLLYMPH x10^3 2.30 1.32 - 3.29 10*3/uLMONO x10^3 0.50 0.33 - 0.92 10*3/uLEOS x10^3 0.14 0.03 - 0.39 10*3/uLBASO x10^3 0.05 0.01 - 0.07 10*3/uLBASIC METABOLIC PANEL (NA, K, CL, CO2, GLUCOSE, BUN, CREATININE, CA) - AbnormalNA 132 (*) 135 - 145 mmol/LK 4.0 3.5 - 5.0 mmol/LCL 100 98 - 108 mmol/LCO2 TOTAL 17 (*) 23 - 31 mmol/LAGAP 15 2 - 16BUN 7 7 - 23 mg/dLGLUCOSE 72 70 - 110 mg/dLCREATININE 0.51 0.50 - 1.04 mg/dLCALCIUM 10.7 (*) 8.6 - 10.6 mg/dLeGFR 128.2 mL/min/1.81u8QNHR TEST - NormalPOCT PREG PositiveOn board controls acceptable with C Line YesPOCT PREG LOT # [id number] PREG TEST DATE 08/04/2024TOTAL BETA HCG ASSAYBETA HCG 45,228.00 Non- female and male patients: <5 mIU/mLTYPE AND SCREENABO & RH O PositiveIAT NegativeABORH CONFIRMATION (LAB ONLY)ABO & RH O PositiveOrders and Treatments:Orders Placed This EncounterProceduresUS FIRST TRIMESTER LESS THAN 14 WEEKS WITH TRANSVAGINALUrinalysisCbc with DiffBasic Metabolic Panel (NA, K, CL, CO2, GLUCOSE, BUN, CREATININE, CA)TOTAL BHCG (QUANTITATIVE)POCT TESTType and Screen - ONCE STATABORH Confirmation (Lab Only)No orders of the defined types were placed in this encounter.First Provider Eval:ED EventsDate/Time Event User Rudnmbza97/28/232226 Medical Screening Begins BRUCE LARA MD --05/23/232226 First Provider Evaluation BRUCE LARA MD --ED COURSEDiagnosis/Impression as of 05/24/23 0117Vaginal bleedingVaginal bleeding before 22 weeks gestationProcedures:ProceduresMDM:M edical Decision MakingLaney Young is a 32 year old female who presents to the ED with vaginal b;leedingafter intercourse. Pt is 13 weeks Problems Addressed:Vaginal bleeding before 22 weeks gestation: acute illness or injuryAmount and/or Complexity of Data ReviewedIndependent Historian: spouseLabs: ordered. Decision-making details documented in ED Course.Radiology: ordered. Decision-making details documented in ED Course.RiskOTC drugs.Risk Details: Has an appointment with own OB-PANTOGRAPH I ENGRAVER. Will follow-upFlowsheet Documentation:Scoring Tools:No data recordedDisposition/Condition:ED DispositionED DispositionDisch - HomeConditionStableComment--Dischar ge Medications:Patient's MedicationsNo medications on fileFollow-up:Electronically signed by:Bruce Lara MD05/24/23116 27620-2Iohqmmyqm Emergency department PcbyCB6181-81-81Q50:17:07Physician Emergency department NoteTXT1.2.840.594334.1.13.104.2.7. 2.617604|[id number] for patient mtaj98936-5Pxczdyrmw department NoteLNNARRATIVEFormatted C-CDA narrative textUT[address] Hi[id number] 2DKEELWWZFZJUJUXPMHPDPM6884-65-38Q7 1:17:071.2.840.231492.1.72.3.15|1.2 .840.033455.1.13.104.2.7.2.727879_1 [id number] [facility]
[2023-11-19] MEDS ORDERED: ONDANSETRON 4 MG/2 ML VIAL ONE (04:15)
[2023-11-19] MEDS ORDERED: MECLIZINE HCL 12.5 MG TAB ONE ×2 (04:15→04:21)
[2023-11-19] MEDS ORDERED: NA CHLORIDE 0.9% 1,000 ML ONE (04:16)
[2023-11-19 04:41] LABS: Absolute Eosinophils 0.2 K/uL (0-0.5); Absolute Lymphocytes (CBC) 2.4 K/uL (0.7-4.9); Absolute Monocytes 0.3 K/uL (0.1-1.3); Absolute Neutrophil 3.5 K/uL (1.8-8.0); Basophils % 0.5 % (0-1.3); Eosinophils % 3.2 % (0-4.4); Hemoglobin 12.5 g/dL (12.0-15.0); Lymphocytes % 36.5 % (15.3-44.8); MCH 28.5 pg (27.0-35.0); MCHC 32.9 g/dL (32.0-36.0); MCV 86.7 fL (80-100); MPV 7.8 fL (7.6-11.3); Monocytes % 4.9 % (3.3-12.3); Neutrophils % 54.9 % (41.7-73.7); Platelets 318 thou/uL (152-406); RBC Red Blood Cell Count 4.38 M/uL (3.86-4.86); Red Cell Distribution Width 15.3 % (12.1-15.2)
[2023-11-19 04:54] LABS: Anion Gap 7.9 mEq/L (5.0-15.0); BUN Blood Urea Nitrogen 13 mg/dL (7-18); Bicarbonate 27 mEq/L (21-32); Glomerular Filtration Rate 116 ml/min (=/>90); Glucose Level 100 mg/dL (74-106); Potassium 3.9 mEq/L (3.5-5.1); Sodium Level 138 mEq/L (136-145)
[2023-11-19 04:58] LABS: Troponin High Sensitivity < 3.0 pg/mL (<58.9)
--- NOTE | 2023-11-19 06:59 | EDPHYS ---
Physician Documentation [facility] Name: Laney Pratt Age: 33 yrs Sex: Female : 1990 Arrival Date: 11/19/2023 Time: 03:40 Bed 6 Private MD: ED Physician Jerry Perez HPI: 11/18 04:04 This 33 yrs old Female presents to ER via Wheelchair with complaints of ec2 Dizziness, Numbness Of Face, High Blood Pressure, Headache. 04:04 Patient arrives today for evaluation of dizziness. Reports 2 to 3 days of dizziness. ec2 States that she feels vertiginous when she lays down. Patient reports symptoms are worsened with laying down and movement. Patient reports no recent falls injuries or trauma. Reports no significant medical problems. Patient reports some associated nausea, no vomiting.. 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 Flu vaccine is not up to date. - Infectious Disease History:: Denies. - Social history:: Smoking status: Patient denies any tobacco usage or history of. ROS: 04:05 Constitutional: as per hpi ec2 Exam: 04:05 Constitutional: GEN: NAD Head: atraumatic Eyes: EOMI Ears: External ears are ec2 normal. CV: regular rate LUNGS: no respiratory distress ABD: non-distended SKIN: no evidence of rashes MSK: no evidence of trauma NEURO: moves all extremities equally, cranial nerves II through XII intact, strength intact all 4 extremities, no pronator drift noted. Vital Signs: 03:57 BP 134 / 92; Pulse 83; Resp 15; Temp 98; Pulse Ox 98% ; Weight 68.04 kg; Height 5 ft. 4 vc1 in. ; Pain 0/10; 05:30 BP 127 / 91; Pulse 79; Pulse Ox 100% on R/A; tm6 06:03 BP 123 / 90; ec2 06:27 BP 137 / 86; Pulse 99; Pulse Ox 95% on R/A; Pain 0/10; tm6 07:08 BP 137 / 86; Pulse 72; Resp 19; Temp 97.8(TE); Pulse Ox 99% on R/A; Pain 0/10; tm6 03:57 Body Mass Index 25.75 (68.04 kg, 162.56 cm) vc1 03:57 Pain Scale: Adult vc1 06:27 Pain Scale: Adult tm6 07:08 Pain Scale: Adult tm6 MDM: 03:52 Patient medically screened. ec2 04:05 Data reviewed: vital signs. ED course: Patient arrives today for evaluation of ec2 dizziness. Examination remarkable for neuro intact individual is otherwise in no acute distress with a reassuring examination. Will obtain lab work, EKG, CT scan of the head. Differential diagnosis includes intracranial mass, arrhythmia, electrolyte disturbances.. 04:33 ED course: EKG independently reviewed and interpreted by me, shows normal sinus rhythm, ec2 rate of 80, no acute ST segment elevations, intervals are nonconcerning.. 05:48 ED course: Metabolic profile reassuring, CBC reassuring, troponin is undetectable. ec2 Pending CT imaging. Pending urine studies. . 06:59 ED course: CT angio of the head with no acute intracranial pathology. On reassessment ec2 patient is well-appearing in no acute distress. Will discharge home and have follow-up with primary care doctor. Return precautions given. 11/18 04:04 Order name: Basic Metabolic Panel; Complete Time: 05:48 ec2 11/18 04:04 Order name: CBC with Diff; Complete Time: 05:48 ec2 11/18 04:04 Order name: Troponin HS; Complete Time: 05:48 ec2 11/18 04:04 Order name: CT Head Brain wo Cont ec2 11/18 04:04 Order name: CT Head Angio ec2 11/18 04:04 Order name: CT Neck Angio ec2 11/18 04:04 Order name: EKG; Complete Time: 04:05 ec2 11/18 04:04 Order name: Cardiac monitoring; Complete Time: 04:28 ec2 11/18 04:04 Order name: EKG - Nurse/Tech; Complete Time: 04:28 ec2 11/18 04:04 Order name: IV Saline Lock; Complete Time: 04:21 ec2 11/18 04:04 Order name: Labs collected and sent; Complete Time: 04:21 ec2 11/18 04:04 Order name: O2 Per Protocol; Complete Time: 04:05 ec2 11/18 04:04 Order name: O2 Sat Monitoring; Complete Time: 04:05 ec2 Administered Medications: 04:31 Drug: NS 0.9% IV 1000 ml IV at 1 bolus Per protocol; 1000 mL bolus Route: IV; Rate: 1 tm6 bolus; Site: left antecubital; 04:31 Drug: Meclizine PO 50 mg PO once Route: PO; tm6 04:31 Drug: Ondansetron IVP 4 mg IVP once; over 2 minutes Route: IVP; Site: left antecubital; tm6 Disposition Summary: 11/19/23 06:59 Discharge Ordered Notes: Location: Home ec2 Condition: Stable ec2 Diagnosis - Dizziness and giddiness ec2 - Other peripheral vertigo ec2 Followup: ec2 - With: Private Physician - When: - Reason: Re-evaluation by your physician Discharge Instructions: - Discharge Summary Sheet ec2 - Dizziness, [id number] ec2 Forms: - Medication Reconciliation Form ec2 - Antibiotic Education ec2 - Prescription Opioid Use ec2 - Patient Portal Instructions ec2 - Leadership Thank You Letter ec2 Prescriptions: - Meclizine 25 mg Oral Tablet - take 1 tablet ORAL route every 8 hours As needed; 30 tablet; Refills: 0, ec2 Product Selection Permitted Signatures: Dispatcher [employer] EDMS Shanice Hargrove RN RN vc1 Jerry Perez MD MD ec2 Hailey Granado RN RN tm6 Corrections: (The following items were deleted from the chart) 04:05 04:05 Head Brain Wo Cont+CT.RAD.BRZ ordered. EDMS EDMS 04:05 04:05 Head Angio+CT.RAD.BRZ ordered. EDMS EDMS 04:05 04:05 Neck Angio+CT.RAD.BRZ ordered. EDMS EDMS 04:05 04:05 Urinalysis W/Microscopic+U.LAB.BRZ ordered. EDMS EDMS
--- NOTE | 2023-11-19 06:59 | ER ---
Nurse's Notes [facility] Name: Laney Pratt Age: 33 yrs Sex: Female : 1990 Arrival Date: 11/19/2023 Time: 03:40 Bed 6 Private MD: Diagnosis: Dizziness and giddiness;Other peripheral vertigo Presentation: 11/18 03:57 Chief complaint: Patient states: woke up feeling dizzy with vertigo and pressure on the vc1 left side of my head. Coronavirus screen: Client denies travel out of the [place] in the last 14 days. At this time, the client does not indicate any symptoms associated with coronavirus-19. Ebola Screen: Patient negative for fever greater than or equal to 101.5 degrees Fahrenheit, and additional compatible Ebola Virus Disease symptoms Patient denies exposure to infectious person. Patient denies travel to an Ebola-affected area in the 21 days before illness onset. No symptoms or risks identified at this time. Initial Sepsis Screen: Does the patient meet any 2 criteria? No. Patient's initial sepsis screen is negative. Does the patient have a suspected source of infection? No. Patient's initial sepsis screen is negative. Risk Assessment: Do you want to hurt yourself or someone else? Patient reports no desire to harm self or others. Onset of symptoms was November 19, 2023. 03:57 Method Of Arrival: Wheelchair vc1 03:57 Acuity: SHABBIR 3 vc1 Triage Assessment: 04:00 Headache History: Other Head has no pain, just pressure. General: Appears in no vc1 apparent distress. comfortable, well groomed, well developed, well nourished, Behavior is cooperative, anxious. Pain: Denies pain. EENT: No deficits noted. No signs and/or symptoms were reported regarding the EENT system. Neuro: Level of Consciousness is awake, alert, obeys commands, Oriented to person, place, time, situation, Appropriate for age Reports dizziness, pressure to left side of head. 07:09 Pain: Pain began Also complains of no other associated symptoms. 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 Flu vaccine is not up to date. - Infectious Disease History:: Denies. - Social history:: Smoking status: Patient denies any tobacco usage or history of. Screenin:01 [facility] ED Fall Risk Assessment (Adult) History of falling in the last 3 months, ha1 including since admission No falls in past 3 months (0 pts) Confusion or Disorientation No (0 pts) Intoxicated or Sedated No (0 pts) Impaired Gait No (0 pts) Mobility Assist Device Used No (0 pt) Altered Elimination No (0 pt) Score/Fall Risk Level 0 - 2 = Low Risk Oriented to surroundings, Maintained a safe environment, Educated pt \T\ family on fall prevention, incl call for assistance when getting out of bed, Hourly rounding (assess needs \T\ fall precautionary measures) done. Abuse screen: Denies threats or abuse. Denies injuries from another. Nutritional screening: No deficits noted. Tuberculosis screening: No symptoms or risk factors identified. Assessment: 03:47 General: Appears uncomfortable, Behavior is calm, cooperative. Pain: Complains of pain ha1 in head Pain does not radiate. Pain currently is 2 out of 10 on a pain scale. Quality of pain is described as pressure. Neuro: Level of Consciousness is awake, alert, obeys commands, Oriented to person, place, time, situation, Reports vertigo. Cardiovascular: Capillary refill < 3 seconds Patient's skin is warm and dry. Respiratory: Airway is patent Respiratory effort is even, unlabored, Respiratory pattern is regular, symmetrical. GI: No signs and/or symptoms were reported involving the gastrointestinal system. Derm: Skin is moist, Skin is pink, warm \T\ dry. Musculoskeletal: Circulation, motion, and sensation intact. Range of motion: intact in all extremities. 05:31 Reassessment: Patient and/or family updated on plan of care and expected duration. Pain tm6 level reassessed. Patient is alert, oriented x 3, equal unlabored respirations, skin warm/dry/pink. 06:27 Reassessment: Patient appears in no apparent distress at this time. No changes from tm6 previously documented assessment. 07:09 Reassessment: Patient states feeling better. tm6 Vital Signs: 03:57 BP 134 / 92; Pulse 83; Resp 15; Temp 98; Pulse Ox 98% ; Weight 68.04 kg; Height 5 ft. 4 vc1 in. ; Pain 0/10; 05:30 BP 127 / 91; Pulse 79; Pulse Ox 100% on R/A; tm6 06:03 BP 123 / 90; ec2 06:27 BP 137 / 86; Pulse 99; Pulse Ox 95% on R/A; Pain 0/10; tm6 07:08 BP 137 / 86; Pulse 72; Resp 19; Temp 97.8(TE); Pulse Ox 99% on R/A; Pain 0/10; tm6 03:57 Body Mass Index 25.75 (68.04 kg, 162.56 cm) vc1 03:57 Pain Scale: Adult vc1 06:27 Pain Scale: Adult tm6 07:08 Pain Scale: Adult tm6 ED Course: 03:43 Patient arrived in ED. ec2 03:47 Patient has correct armband on for positive identification. Bed in low position. Call ha1 light in reach. Side rails up X 1. 03:47 Client placed on continuous cardiac and pulse oximetry monitoring. NIBP monitoring tm6 applied. media monitor on. Pulse ox on. NIBP on. Door closed. Noise minimized. Warm blanket given. Pillow given. 03:47 Arm band placed on right wrist. tm6 03:52 Jerry Perez MD is Attending Physician. ec2 03:59 Triage completed. vc1 04:04 Hailey Granado, RN is Primary Nurse. tm6 04:21 Inserted saline lock: 20 gauge in left antecubital area, using aseptic technique. Blood rc3 collected. 04:22 Basic Metabolic Panel Sent. rc3 04:22 CBC with Diff Sent. rc3 04:22 Troponin HS Sent. rc3 05:09 CT Head Brain wo Cont In Process Unspecified. EDMS 05:09 CT Head Angio In Process Unspecified. EDMS 05:09 CT Neck Angio In Process Unspecified. EDMS 07:09 Provided Education on: use of prescription med. tm6 07:09 No provider procedures requiring assistance completed. IV discontinued, intact, tm6 bleeding controlled, No redness/swelling at site. Pressure dressing applied. Administered Medications: 04:31 Drug: NS 0.9% IV 1000 ml IV at 1 bolus Per protocol; 1000 mL bolus Route: IV; Rate: 1 tm6 bolus; Site: left antecubital; : Drug: Meclizine PO 50 mg PO once Route: PO; tm6 04:31 Drug: Ondansetron IVP 4 mg IVP once; over 2 minutes Route: IVP; Site: left antecubital; tm6 Medication: 07:10 VIS not applicable for this client. tm6 Outcome: 06:59 Discharge ordered by . ec2 07:09 Discharged to home ambulatory, tm6 07:09 Condition: stable 07:09 Discharge instructions given to patient, Instructed on discharge instructions, follow up and referral plans. medication usage, Demonstrated understanding of instructions, follow-up care, medications, Prescriptions given X 1, 07:10 Patient left the ED. tm6 Signatures: Dispatcher [employer] Shanice Modi RN RN vc1 Riya Diehl RN RN ha1 Jerry Perez MD MD ec2 Hailey Granado RN RN tm6 [facility]
[2023-11-19 11:25] VITALS: BP 137/86; TEMP 97.8; O2SAT 99
--- NOTE | 2023-11-19 14:47 | RAD REPORT ---
EXAM DESCRIPTION: CT - Head angio - 11/19/2023 6:43 am CLINICAL HISTORY: The patient is 33 years old and is Female; DIZZINESS TECHNIQUE: Axial computed tomographic angiography images of the head with intravenous contrast. Sa gittal and coronal reformatted images were created and reviewed. This CT exam was performed using o ne or more of the following dose reduction techniques: automated exposure control, adjustment of th e mA and/or kV according to patient size, and/or use of iterative reconstruction technique. MIP rec onstructed images were created and reviewed. COMPARISON: No relevant prior studies available. FINDINGS: Right internal carotid artery: No acute findings. Intracranial segment is patent with no significant stenosis. No aneurysm. Right anterior cerebral artery: Unremarkable. No occlusion or significant stenosis. No aneury sm. Right middle cerebral artery: Unremarkable. No occlusion or significant stenosis. No aneurysm . Right posterior cerebral artery: Unremarkable. No occlusion or significant stenosis. No aneur ysm. Right vertebral artery: Unremarkable as visualized. Left internal carotid artery: No acute findings. Intracranial segment is patent with no signifi cant stenosis. No aneurysm. Left anterior cerebral artery: Unremarkable. No occlusion or significant stenosis. No aneurys m. Left middle cerebral artery: Unremarkable. No occlusion or significant stenosis. No aneurysm. Left posterior cerebral artery: Unremarkable. No occlusion or significant stenosis. No aneury sm. Left vertebral artery: Unremarkable as visualized. Basilar artery: Unremarkable. No occlusion or significant stenosis. No aneurysm. IMPRESSION: No occlusion or significant stenosis. No aneurysm. Electronically signed by: Yunier Chacon MD 11/19/2023 06:24 AM CDT 8 Due to temporary technical issues with the PACS/Fluency reporting system, reports are being signed by the in house radiologists without review as a courtesy to insure prompt reporting. The interpreting radiologist is fully responsible for the content of the report.
--- NOTE | 2023-11-19 14:59 | RAD REPORT ---
EXAM DESCRIPTION: CT - Neck Angio - 11/19/2023 6:43 am CLINICAL HISTORY: The patient is 33 years old and is Female; dizziness TECHNIQUE: Routine carotid CT angiography protocol was performed with intravenous contrast. NASCET criteria using the distal ICAs for comparison were used for evaluation of stenoses. Sagittal and c oronal reformatted images were created and reviewed. This CT exam was performed using one or more o f the following dose reduction techniques: automated exposure control, adjustment of the mA and/or kV according to patient size, and/or use of iterative reconstruction technique. MIP reconstructed i mages were created and reviewed. COMPARISON: None. FINDINGS: VASCULATURE: Right common carotid artery: Unremarkable. No occlusion or significant stenosis. No dissectio n. Right internal carotid artery: Unremarkable. Extracranial segment is patent with no occlusion o r significant stenosis. No dissection. Right external carotid artery: Unremarkable. No occlusion. Right vertebral artery: Unremarkable. No occlusion or significant stenosis. No dissection. Left common carotid artery: Unremarkable. No occlusion or significant stenosis. No dissection . Left internal carotid artery: Unremarkable. Extracranial segment is patent with no occlusion or significant stenosis. No dissection. Left external carotid artery: Unremarkable. No occlusion. Left vertebral artery: Unremarkable. No occlusion or significant stenosis. No dissection. NECK: Bones/joints: Unremarkable. No acute fracture. Soft tissues: Unremarkable. Lung apices: Clear. IMPRESSION: No significant stenosis. No dissection or occlusion. Electronically signed by: Yunier Chacon MD 11/19/2023 06:17 AM CDT RP 8 Due to temporary technical issues with the PACS/Fluency reporting system, reports are being signed by the in house radiologists without review as a courtesy to insure prompt reporting. The interpreting radiologist is fully responsible for the content of the report.
--- NOTE | 2023-11-19 15:02 | RAD REPORT ---
EXAM DESCRIPTION: CT - Head Brain Wo Cont - 11/19/2023 6:43 am CLINICAL HISTORY: The patient is 33 years old and is Female; DIZZINESS TECHNIQUE: Axial computed tomography images of the head/brain without intravenous contrast. Sagitt al and coronal reformatted images were created and reviewed. This CT exam was performed using one o r more of the following dose reduction techniques: automated exposure control, adjustment of the mA and/or kV according to patient size, and/or use of iterative reconstruction technique. COMPARISON: No relevant prior studies available. FINDINGS: Brain: Unremarkable. No hemorrhage. No significant white matter disease. No edema. Ventricles: Unremarkable. No ventriculomegaly. Bones/joints: Unremarkable. No acute fracture. Soft tissues: Unremarkable. Sinuses: Left maxillary sinus mucosal thickening. Mastoid air cells: Unremarkable as visualized. No mastoid effusion. IMPRESSION: No acute intracranial abnormality. Electronically signed by: Yunier Chacon MD 11/19/2023 06:11 AM CDT RP 8 Due to temporary technical issues with the PACS/Fluency reporting system, reports are being signed by the in house radiologists without review as a courtesy to insure prompt reporting. The interpreting radiologist is fully responsible for the content of the report.
--- NOTE | 2023-11-20 13:54 | EKG ---
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
== END 2023-11-19 07:10 | disposition home or self-care (01) ==
LOC: ER 03:40
DX: H81.399 Other peripheral vertigo, unspecified ear (principal)
CPT/HCPCS: 93005; 85025; 80048; 36415; 84484; 70450; 70496; 70498; Q9967; J8597 ×2; J2405; J7030

== ENCOUNTER 2024-07-09 19:17 | Emergency (ER) | payer OTHER ==
--- OUTSIDE RECORDS SUMMARY | 2024-07-09 19:20 | XMS REPORT | Continuity of Care Document ---
Author Name Unknown Address [address] [facility] [address] [place] [address] [facility] Address [address] [facility] [place] [address] Care Team Providers Care Dude Ranch Manager Name Role Phone PCP, PATIENT DOES NOT HAVE A Primary Care Physic BELEM Christianson Attending Clinician BELEM Olivas Attending Clinician UnavailJAYME David Attending Clinician Unavailable Murali Kaur MD Attending Clinician [phone] NICOLASA ROACH Attending Clinician UnavailNicolasa Viveros MD Attending Clinician [phone] Matt Evans Attending Clinician BRUCE Melchor Attending Clinician Bruce Taveras MD Attending Clinician [phone] Matt Evans Admitting Clinician BRUCE Melchor Admitting Clinician Unavailable Payers Payer Name Policy Type Policy Number Effective Date Expirati on Date Source [facility] [place] [id number] 2023 00:00:00 [place] [employer] [place] [id number] 2023 00:00:00 Allergies, Adverse Reactions, Alerts Allergy Name Allergy Type Status Severity Reaction(s) Onset Date Inactive Date Treating Clinician Comments Source No Known Allergie s DA Active U 6-05 00:00: 00 [facility] No Known Allergie s DA Active U 5- 00:00: 00 [facility] No Known Allergie s DA Active U 5 00:00: 00 [facility] No Known Allergie s DA Active U 09-23 00:00: 00 [facility] NO KNOWN ALLERGIE S Drug Class Active [facility] acute hospital Social History Social Habit Start Date Stop Date Quantity Comments Source [facility] of Social function 2024-01-30 00:00:00 2024-01-30 00:00:00 [facility] Sex assigned at 1990 00:00:00 1990 00:00:00 [facility] Smoking Status Start Date Stop Date Source Tobacco smoking consumption unknown [facility] Medications Ordered Medication Name Filled Medication Name Start Date Stop Date Current Medication? Ordering Clinician Indication Dosage Frequency Signature (SIG) Comments Components Source escitalopra m oxalate (LEXAPRO) 10 mg tablet 01-29 00:00: 00 Yes [id number] 10mg Take 1 tablet by mouth in the morning. [facility] acute hospital busPIRone 7.5 mg tablet 01-29 00:00: 00 01-29 00:00 :00 No [id number] 7.5mg Take 1 tablet by mouth in the morning and 1 tablet in the evening. [facility] acute hospital ondansetron (ZOFRAN (PF)) injection 4 mg 01-10 15:15: 00 01-10 14:16 :00 No 4mg 4 mg, Slow IV Push, ONCE, 1 dose, On 01/11/24 at 1015, MANNY [facility] acute hospital acetaminoph en (TYLENOL) tablet 975 mg 01-10 14:30: 00 01-10 13:29 :00 No 975mg 975 mg, Oral, ONCE, 1 dose, On 01/11/24 at 0930, MANNY [facility] acute hospital ketorolac (TORADOL) injection 30 mg 01-10 14:30: 00 01-10 13:29 :00 No 30mg 30 mg, Slow IV Push, ONCE, 1 dose, On Sat01/11/24 at 0930, Routine [facility] acute hospital chlordiazeP OXIDE (LIBRIUM) capsule 100 mg 01-10 14:15: 00 01-10 14:16 :00 No 100mg 100 mg, Oral, ONCE, 1 dose, On Sat01/11/24 at 0915, MANNY [facility] acute hospital ondansetron (ZOFRAN (PF)) injection 4 mg 01-10 12:45: 00 01-10 12:31 :00 No 4mg 4 mg, Slow IV Push, ONCE, 1 dose, On Sat01/11/24 at 0745, MANNY [facility] acute hospital ondansetron 4 mg disintegrat ing tablet 01-10 00:00: 00 Yes [id number] 4mg Take 1 tablet by mouth every 4 (four) hours as needed for Nausea and Vomiting (N/V). [facility] acute hospital chlordiazeP OXIDE 25 mg capsule 01-10 00:00: 00 Yes [id number] 100mg Take 4 capsules by mouth in the morning and 4 capsules at noon and 4 capsules in the evening. [facility] acute hospital thiamine 100 mg tablet 01-10 00:00: 00 Yes [id number] 100mg Take 1 tablet by mouth in the morning. [facility] acute hospital cefTRIAXone (ROCEPHIN) injection 500 mg 01-06 19:15: 00 01-06 19:10 :00 No 500mg 500 mg, Intramuscu lar, ONCE, 1 dose, On Sat01/07/24 at 1415, MANNY, Reason for Anti-Infec tive: Documented Infection, Documented Infection Site: Urine, Duration of Therapy: Once (ED) [facility] acute hospital ondansetron (ZOFRAN-ODT ) disintegrat ing tablet 4 mg 01-06 18:30: 00 01-06 19:10 :00 No 4mg 4 mg, Oral, ONCE NOW, 1 dose, On Sat01/07/24 at 1330, MANNY [facility] acute hospital ulipristaL (SHANA) tablet 30 mg 01-06 18:30: 00 01-06 19:06 :00 No 30mg 30 mg, Oral, ONCE NOW, 1 dose, On Sat01/07/24 at 1330, MANNY [facility] acute hospital metroNIDAZO LE (FLAGYL) tablet 500 mg 01-06 18:30: 00 01-06 19:10 :00 No 500mg 500 mg, Oral, ONCE NOW, 1 dose, On Sat01/07/24 at 1330, MANNY, Reason for Anti-Infec tive: Documented Infection, Documented Infection Site: Urine, Duration of Therapy: Once (ED) [facility] acute hospital elviteg-cob -emtri-teno f ALAFEN (GENVOYA) 150-150-200 -10 mg per tablet 1 tablet 01-06 18:30: 00 01-06 19:06 :00 No 1{tbl} 1 tablet, Oral, ONCE NOW, 1 dose, On Sat01/07/24 at 1330, MANNY [facility] acute hospital doxycycline hyclate 100 mg capsule 01-06 00:00: 00 Yes [id number] 100mg Take 1 capsule by mouth in the morning and 1 capsule in the evening. [facility] acute hospital metroNIDAZO LE 500 mg tablet 01-06 00:00: 00 01-14 04:59 :00 No [id number] 500mg Take 1 tablet by mouth every 8 (eight) hours for 7 days. [facility] acute hospital Vital Signs Vital Name Observation Time Observation Value Comments Fito argueta Systolic blood pressure 2024-01-11 13:00:00 126 mm[Hg] [facility] Diastolic blood pressure 2024-01-11 13:00:00 85 mm[Hg] [facility] Heart rate 2024-01-11 13:00:00 82 /min [facility] acute hospital Respiratory rate 2024-01-11 13:00:00 18 /min [facility] Oxygen saturation in Arterial blood by Pulse oximetry 2024-01-11 13:00:00 98 /min [facility] Body temperature 2024-01-11 11:24:00 36.33 Suzanne [facility] Body height 2024-01-11 11:24:00 162.6 cm [facility] Body weight 2024-01-11 11:24:00 61.236 kg [facility] BMI 2024-01-11 11:24:00 23.17 kg/m2 [facility] Systolic blood pressure 2024-01-07 17:18:00 148 mm[Hg] [facility] Diastolic blood pressure 2024-01-07 17:18:00 103 mm[Hg] [facility] Heart rate 2024-01-07 17:18:00 114 /min Unive [facility] Body temperature 2024-01-07 17:18:00 36.83 Suzanne [facility] Respiratory rate 2024-01-07 17:18:00 16 /min [facility] Body height 2024-01-07 17:18:00 162.6 cm [facility] Body weight 2024-01-07 17:18:00 66.225 kg [facility] BMI 2024-01-07 17:18:00 25.06 kg/m2 [facility] Oxygen saturation in Arterial blood by Pulse oximetry 2024-01-07 17:18:00 100 /min [facility] Systolic blood pressure 2023-05-24 07:00:00 129 mm[Hg] [facility] Diastolic blood pressure 2023-05-24 07:00:00 87 mm[Hg] [facility] Heart rate 2023-05-24 07:00:00 87 /min Unive [facility] Body temperature 2023-05-24 07:00:00 37.17 Suzanne [facility] Respiratory rate 2023-05-24 07:00:00 14 /min [facility] Oxygen saturation in Arterial blood by Pulse oximetry 2023-05-24 07:00:00 98 /min [facility] Body height 2023-05-24 04:24:00 162.6 cm [facility] 2023-05-24 04:24:00 61.236 kg [facility] BMI 2023-05-24 04:24:00 23.17 kg/m2 [facility] Systolic blood pressure 2024-01-30 14:02:00 128 mm[Hg] [facility] Diastolic blood pressure 2024-01-30 14:02:00 90 mm[Hg] [facility] Heart rate 2024-01-30 14:02:00 95 /min [facility] acute hospital Respiratory rate 2024-01-30 14:02:00 18 /min [facility] Body height 2024-01-30 14:02:00 162.6 cm [facility] Body weight 2024-01-30 14:02:00 61.236 kg [facility] BMI 2024-01-30 14:02:00 23.17 kg/m2 [facility] Oxygen saturation in Arterial blood by Pulse oximetry 2024-01-11 13:00:00 98 /min [facility] Body temperature 2024-01-11 11:24:00 36.33 Suzanne [facility] Procedures Procedure Date / Time Performed Performing Clinician Source POCT TEST 2024-01-11 13:01:00 Tayla Kaur [facility] POCT TEST 2024-01-11 13:01:00 Tayla Kaur [facility] URINALYSIS 2024-01-11 12:52:00 Murali Kaur [facility] URINE DRUG (IMMUNOASSAY) - COMPREHENSIVE DRUG SCREEN W/O REFLEX 2024-01-11 12:52:00 Murali Kaur [facility] URINALYSIS 2024-01-11 12:52:00 [facility] URINE DRUG (IMMUNOASSAY) - COMPREHENSIVE DRUG SCREEN W/O REFLEX 2024-01-11 12:52:00 Murali Kaur [facility] XR CHEST 1 VW 2024-01-11 12:28:21 Murali Kaur [facility] XR CHEST 1 VW 2024-01-11 12:28:21 Murali Kaur [facility] LIPASE 2024-01-11 11:41:00 Bruce Lara [facility] TROPONIN I 2024-01-11 11:41:00 Bruce Lara [facility] COMP. METABOLIC PANEL ([id number]) 2024-01-11 11:41:00 Bruce Lara [facility] CBC WITH DIFF 2024-01-11 11:41:00 Bruce Lara [facility] TROPONIN I 2024-01-11 11:41:00 Bruce Lara [facility] COMP. METABOLIC PANEL ([id number]) 2024-01-11 11:41:00 Bruce Lara [facility] LIPASE 2024-01-11 11:41:00 Bruce Lara [facility] CBC WITH DIFF 2024-01-11 11:41:00 Bruce Lara [facility] HB ECG ROUTINE & RHYTHM STRIP 2024-01-11 11:26:43 Bruce Lara [facility] POCT TEST 2024-01-07 19:03:00 Trevor Roach [facility] POCT TEST 2024-01-07 19:03:00 Trevor Roach [facility] URINE DRUG (IMMUNOASSAY) - COMPREHENSIVE DRUG SCREEN W/O REFLEX 2024-01-07 19:02:00 Nicolasa Roach [facility] URINE DRUG (IMMUNOASSAY) - COMPREHENSIVE DRUG SCREEN W/O REFLEX 2024-01-07 19:02:00 Nicolasa Roach [facility] HIV 1/2 AG-AB WITH REFLEX 2024-01-07 18:56:00 Nicolasa Roach [facility] CBC WITH DIFF 2024-01-07 18:56:00 Nicolasa Roach [facility] COMP. METABOLIC PANEL ([id number]) 2024-01-07 18:56:00 Nicolasa Roach [facility] ETHANOL 2024-01-07 18:56:00 Nicolasa Roach [facility] COMP. METABOLIC PANEL ([id number]) 2024-01-07 18:56:00 Nicolasa Roach [facility] ETHANOL 2024-01-07 18:56:00 Nicolasa Roach Un [facility] CBC WITH DIFF 2024-01-07 18:56:00 Nicolasa Roach [facility] HIV 1/2 AG-AB WITH REFLEX 2024-01-07 18:56:00 Nicolasa Roach [facility] [id number] 2023-10-31 00:00:00 ERNESTINA [facility] FIRST TRIMESTER LESS THAN 14 WEEKS WITH TRANSVAGINAL 2023-05-24 06:15:[address] [facility] ABORH CONFIRMATION (LAB ONLY) 2023-05-24 05:52:00 Bruce Lara [facility] POCT TEST 2023-05-24 04:57:00 Bruce Lara [facility] URINALYSIS 2023-05-24 04:54:00 Bruce Lara [facility] BASIC METABOLIC PANEL (NA, K, CL, CO2, GLUCOSE, BUN, CREATININE, CA) 2023-05-24 04:31:00 Bruce Lara [facility] TOTAL BETA HCG ASSAY 2023-05-24 04:31:00 Julio Cesar Lara i [facility] CBC WITH DIFF 2023-05-24 04:31:00 Bruce Lara [facility] HB ABO GROUPING 2023-05-24 04:31:00 Bruce Lara [facility] Encounters Start Date/Time End Date/Time Encounter Type Admission Type Attending Clinicians Care Facility Care Department Encounter ID Source 2024-03-18 10:15:00 2024-03-18 10:15:00 Outpatient BELEM MAJOR KIMBERLY [facility] [id number] General acute hospital 2024-03-17 00:00:00 2024-03-17 00:00:00 Travel 1.2.840.1 [id number] 3.104.2.7 .3.323692 .8 1.2.840.114 350.1.13.10 4.2.7.3.698 084.8 [id number] General acute hospital 2024-02-10 11:02:59 2024-02-10 11:02:59 Outpatient MICAELA [facility] [id number] Giovanni Vieyra 2024-01-30 09:30:00 2024-01-30 10:38:58 Outpatient R RUFINO JAYME [facility] [id number] General acute hospital 2024-01-30 00:00:00 2024-01-30 00:00:00 Travel 1.2.840.1 [id number] 3.104.2.7 .3.979269 .8 1.2.840.114 350.1.13.10 4.2.7.3.698 084.8 [id number] General acute hospital 2024-01-11 06:23:00 2024-01-11 09:29:00 Emergency Murali Kaur 1.2.840.1 96929.1.1 3.104.2.7 .3.481803 .8 [id number] General acute hospital 2024-01-11 00:00:00 2024-01-11 00:00:00 Travel 1.2.840.1 85058.1.1 3.104.2.7 .3.767444 .8 1.2.840.114 350.1.13.10 4.2.7.3.698 084.8 [id number] General acute hospital 2024-01-07 12:21:00 2024-01-07 15:48:00 Emergency X NICOLASA ROACH [facility] ERT [id number] General acute hospital 2024-01-07 12:21:00 2024-01-07 15:48:00 Emergency Nicolasa Roach 1.2.840.1 34682.1.1 3.104.2.7 .3.101855 .8 [id number] General acute hospital 2024-01-07 00:00:00 2024-01-07 00:00:00 Travel 1.2.840.1 [id number] 3.104.2.7 .3.079443 .8 1.2.840.114 350.1.13.10 4.2.7.3.698 084.8 [id number] General acute hospital 2023-10-30 21:22:00 2023-11-02 00:15:00 Inpatient EM Matt Evans [facility] [id number] [facility] 2023-10-25 15:01:00 2023-10-26 12:02:00 Inpatient EM Matt Evans [facility] OBANTE [id number] [facility] 2023-10-01 16:34:00 2023-10-02 21:45:00 Inpatient UR Matt Evans [facility] [id number] [facility] 2023-09-24 11:48:00 2023-09-24 13:38:00 Emergency EM Matt Evans [facility] JONI [id number] [facility] 2023-05-23 22:29:00 2023-05-24 01:25:00 Emergency X FRANCKCONORAMANDA BRUCE [facility] ERT [id number] General acute hospital 2023-05-23 22:29:00 2023-05-24 01:25:00 Emergency Nader Lararadha S [facility] 1.2.840.114 350.1.13.10 4.2.7.2.686 [id number] General acute hospital Results Test Description Test Time Test Comments Results Resul t Comments Source XR CHEST 1 2023-12-26 7 14:05:34 EXAM: XR CHEST 1 01/11/2024 7:13 AM HISTORY: 33 years old Female with chest pain TECHNIQUE: Portable AP view of the chest. COMPARISON: None FINDINGS: Lungs and pleura: Normal lung volumes. The lungs are clear. No focalconsolidation, pneumothorax, or pleural effusion is seen. Cardiomediastinal: The cardiomediastinal silhouette is normal accountingfor technique. Musculoskeletal: No acute osseous abnormality. [id number] 12:35:44* Test Item Value Reference Range Interpretation Comme nts TROPONIN I (test code = 6015404329) 0.001 ng/mL <=0.034 LUIS (test code = LUIS) Reference (Normal) Range (defined by the 99th percentile reference limit): <= 0.034 ng/mL Note: Cardiac troponin begins to rise 3-4 hours after the onset of ischemia. Repeat in 4-6 hours if the sample was drawn within 3-4 hours of the onset of the symptom and found normal. Diagnosis of myocardial injury is made with acute changes in cTn concentrations with at least one serial sample above the 99th percentile upper reference limit (URL), taken together with the patient's clinical presentation. Biotin has been reported to cause a negative bias, interpret results relative to patient's use of biotin. Lab Interpretation (test code = 44199-3) Normal [facility]. METABOLIC PANEL ([id number])2024-01-11 12:24:05* Test Item Value Reference Range Interpretation Comme nts NA (test code = 7980390558) 138 mmol/L 135-145 K (test code = 1918856028) 4.0 mmol/L 3.5-5.0 CL (test code = 4639390681) 103 mmol/L 98-108 CO2 TOTAL (test code = 4553003801) 25 mmol/L 23-31 AGAP (test code = 8666825279) 10 2-16 BUN (test code = 7405933799) 7 mg/dL 7-23 GLUCOSE (test code = 9143912506) 93 mg/dL 70-110 CREATININE (test code = 2160-0) 0.68 mg/dL 0.50-1.04 TOTAL BILI (test code = 4906278837) 0.4 mg/dL 0.1-1.1 CALCIUM (test code = 8846184217) 10.2 mg/dL 8.6-10.6 T PROTEIN (test code = 3049677964) 7.7 g/dL 6.3-8.2 ALBUMIN (test code = 1715386171) 4.3 g/dL 3.5-5.0 ALK PHOS (test code = 6845846634) 136 U/L 34-122 H ALTv (test code = 1742-6) 32 U/L 5-35 AST(SGOT) (test code = 0665676037) 40 U/L 13-40 eGFR (test code = 79767-6) 118.8 mL/min/1.73m2 CKD-EPI eGFR (2020). Assuming creatinine has been stable day-to-day for at least three months, the eGFR indicates Category G1 (>= 90 mL/min/1.73 m2) Lab Interpretation (test code = 77607-0) [facility] [id number] 12:23:45* Test Item Value Reference Range Interpretation Comme nts LIPASE (test code = 2689055860) 97 U/L 0-220 Lab Interpretation (test cod e = 08056-6) Normal [facility] [id number] 12:11:05* Test Item Value Reference Range Interpretation Comme nts WBC (test code = 6690-2) 6.05 4.30-11.10 RBC (test code = 789-8) 4.22 3.93-5.25 HGB (test code = 718-7) 12.5 g/dL 11.6-15.0 HCT (test code = 4544-3) 38.5 % 35.7-45.2 MCV (test code = 787-2) 91.2 fL 80.6-95.5 MCH (test code = 785-6) 29.6 pg 25.9-32.8 MCHC (test code = 786-4) 32.5 g/dL 31.6-35.1 RDW-SD (test code = 82860-1) 49.1 fL 39.0-49.9 RDW-CV (test code = 788-0) 14.6 % 12.0-15.5 PLT (test code = 777-3) 338 166-358 MPV (test code = 82472-6) 10.0 fL 9.5-12.9 NRBC/100 WBC (test code = 5918979939) 0.0 0.0-10.0 NRBC x10^3 (test code = 2867474498) See_Comment [Automated me ssage] The system which generated this result transmitted reference range: 10*3/?L. The reference range was not used to interpret this result as normal/abnormal. GRAN MAT (NEUT) % (test code = 770-8) 46.9 % IMM GRAN % (test code = 1939222193) 0.20 % LYMPH % (test code = 736-9) 41.5 % MONO % (test code = 5905-5) 8.6 % EOS % (test code = 713-8) 2.1 % BASO % (test code = 706-2) 0.7 % GRAN MAT x10^3(ANC) (test code = 0442569063) 2.84 10*3/uL 1.88-7.09 IMM GRAN x10^3 (test code = 4079729256) 0.00-0.06 LYMPH x10^3 (test code = 731-0) 2.51 10*3/uL 1.32-3.29 MONO x10^3 (test code = 742-7) 0.52 10*3/uL 0.33-0.92 EOS x10^3 (test code = 711-2) 0.13 10*3/uL 0.03-0.39 BASO x10^3 (test code = 704-7) 0.04 10*3/uL 0.01-0.07 [facility] with [id number] 20:07:52* Test Item Value Reference Range Interpretation Comme nts HIV Semi-quantitative (test code = 25476-0) 0.11 Negative LUIS (test code = LUIS) Non-reactive for HIV-1 antigen and HIV-1/HIV-2 antibodies. ?No laboratory evidence of HIV infection. ?Repeat in 2-4 weeks if acute HIV infection is suspected. [facility]. METABOLIC PANEL ([id number])2024-01-07 19:29:44* Test Item Value Reference Range Interpretation Comme nts NA (test code = 5747731303) 141 mmol/L 135-145 K (test code = 5620023772) 4.7 mmol/L 3.5-5.0 CL (test code = 5291756525) 104 mmol/L 98-108 CO2 TOTAL (test code = 8773744808) 26 mmol/L 23-31 AGAP (test code = 5909885183) 11 2-16 BUN (test code = 4489728076) 3 mg/dL 7-23 L GLUCOSE (test code = 8112800697) 92 mg/dL 70-110 CREATININE (test code = 2160-0) 0.61 mg/dL 0.50-1.04 TOTAL BILI (test code = 3556274613) 0.4 mg/dL 0.1-1.1 CALCIUM (test code = 9329456391) 11.0 mg/dL 8.6-10.6 H T PROTEIN (test code = 5673890839) 7.9 g/dL 6.3-8.2 ALBUMIN (test code = 3097639062) 4.9 g/dL 3.5-5.0 ALK PHOS (test code = 2914288590) 145 U/L 34-122 H ALTv (test code = 1742-6) 24 U/L 5-35 AST(SGOT) (test code = 8784737554) 31 U/L 13-40 eGFR (test code = 10752-5) 122.0 mL/min/1.73m2 CKD-EPI eGFR (2020). Assuming creatinine has been stable day-to-day for at least three months, the eGFR indicates Category G1 (>= 90 mL/min/1.73 m2) Lab Interpretation (test code = 50742-7) Abnormal [facility] 19:29:44* Test Item Value Reference Range Interpretation Comme nts ALCOHOL (test code = 7986079563) 218 mg/dL LUIS (test code = LUIS) Toxic Greater than or equal to 80 mg/dL. NOTE: Whole blood values are approximately 10% to 15% lower than serum and plasma. [facility] WITH [id number] 19:07:39* Test Item Value Reference Range Interpretation Comme nts WBC (test code = 6690-2) 6.51 4.30-11.10 RBC (test code = 789-8) 4.47 3.93-5.25 HGB (test code = 718-7) 12.8 g/dL 11.6-15.0 HCT (test code = 4544-3) 40.3 % 35.7-45.2 MCV (test code = 787-2) 90.2 fL 80.6-95.5 MCH (test code = 785-6) 28.6 pg 25.9-32.8 MCHC (test code = 786-4) 31.8 g/dL 31.6-35.1 RDW-SD (test code = 62203-8) 48.8 fL 39.0-49.9 RDW-CV (test code = 788-0) 14.6 % 12.0-15.5 PLT (test code = 777-3) 311 166-358 MPV (test code = 38800-8) 9.8 fL 9.5-12.9 NRBC/100 WBC (test code = 8234436424) 0.0 0.0-10.0 NRBC x10^3 (test code = 0681219505) See_Comment [Automated me ssage] The system which generated this result transmitted reference range: 10*3/?L. The reference range was not used to interpret this result as normal/abnormal. GRAN MAT (NEUT) % (test code = 770-8) 51.3 % IMM GRAN % (test code = 0156769517) 0.20 % LYMPH % (test code = 736-9) 41.0 % MONO % (test code = 5905-5) 6.0 % EOS % (test code = 713-8) 0.9 % BASO % (test code = 706-2) 0.6 % GRAN MAT x10^3(ANC) (test code = 2858507211) 3.34 10*3/uL 1.88-7.09 IMM GRAN x10^3 (test code = 1049858245) 0.00-0.06 LYMPH x10^3 (test code = 731-0) 2.67 10*3/uL 1.32-3.29 MONO x10^3 (test code = 742-7) 0.39 10*3/uL 0.33-0.92 EOS x10^3 (test code = 711-2) 0.06 10*3/uL 0.03-0.39 BASO x10^3 (test code = 704-7) 0.04 10*3/uL 0.01-0.07 [facility] [id number] 19:03:00* Test Item Value Reference Range Interpretation Comme nts POCT PREG (test code = 1605) Negative On board controls acceptable with C Line (test code = 3574) Yes POCT PREG LOT # (test code = 3575) [id number] POCT PREG TEST DATE ( test code = 3576) 04/07/2025 Lab Interpretation (test cod e = 69081-9) Normal [facility] [id number] 22:52:00* Test Item Value Reference Range Interpretation Comme nts AG HEPATITIS B SURFACE (test code = HBSAG) NONREACTIVE NONREACTIVE AB HEPATITIS C [id number] 22:52:00* Test Item Value Reference Range Interpretation Comme nts AB HEPATITIS C (test code = HCVAB) NONREACTIVE NONREACTIVE SIGNAL TO CUTOFF (test code = CUTOFF) 0.08 <0.80 N AB [id number] 22:52:00* Test Item Value Reference Range Interpretation Comme nts AB TREPONEMA (test code = TREPAB) NONREACTIVE NONREACTIVE AB HIV 1 22:52:00* Test Item Value Reference Range Interpretation Comme nts AB HIV 1 2 (test code = ZOG69DX) NONREACTIVE NONREACTIVE Done by [employer] 4th Gen HIV Ag/Ab Combo Screen CBC W/AUTO [id number] 21:43:00* Test Item Value Reference Range Interpretation [...] code = BA#) 0.0 K/mm3 UR PROTEIN/CREATININE [id number] 15:04:00* Test Item Value Reference Range Interpretation Comme nts UR PROTEIN RANDOM (test code = PROTU) 14 mg/dL No reference range available UR CREATININE RANDOM (test code = CREATU) 51 mg/dL No referenc e range available PROTEIN/CREATININE RATIO (test code = P/CRATIO) 274.5 mg/gcrea <200 H COMPREHENSIVE METABOLIC [id number] 14:37:00* Test Item Value Reference Range Interpretation [...] if thepatient's age is <18 years. URINALYSIS [id number] 14:22:00* Test Item Value Reference Range Interpretation [...] NONE SEEN URINE SAMPLE: CLEAN CATCHCBC W/AUTO [id number] 14:16:00* Test Item Value Reference Range Interpretation [...] = BA#) 0.0 K/mm3 UR CREATININE CLEARANCE [id number] 22:30:00* Test Item Value Reference Range Interpretation Comme nts CREATININE CLEARANCE RESULT (test code = CREATCLR) 132 ml/min 70-120 H CREATININE (test code = CREAT) 0.6 mg/dL 0.5-1.0 N UR CREATININE RANDOM (test code = CREATU) 67.2 mg/dL No referenc e range available UR VOLUME (test code = VOL) 1700 ML UR PROTEIN [id number] 22:30:00* Test Item Value Reference Range Interpretation Comme nts UR PROTEIN RANDOM (test code = PROTU) 7.1 mg/dL No reference range available UR PROTEIN 24HR (test code = TYZY18I) 121 mg/24HR 20-150 N Units for 24 HR Urine Protein have changed: New Units = MG/24HR AG HEPATITIS B [id number] 22:40:00* Test Item Value Reference Range Interpretation Comme nts AG HEPATITIS B SURFACE (test code = HBSAG) NONREACTIVE NONREACTIVE AB HEPATITIS C [id number] 22:40:00* Test Item Value Reference Range Interpretation Comme nts AB HEPATITIS C (test code = HCVAB) NONREACTIVE NONREACTIVE SIGNAL TO CUTOFF (test code = CUTOFF) 0.06 <0.80 N AB [id number] 22:40:00* Test Item Value Reference Range Interpretation Comme nts AB TREPONEMA (test code = TREPAB) NONREACTIVE NONREACTIVE AB HIV 1 22:40:00* Test Item Value Reference Range Interpretation Comme nts AB HIV 1 2 (test code = MHO30SW) NONREACTIVE NONREACTIVE Done by [employer] 4[employer] Gen HIV Ag/Ab Combo Screen BASIC METABOLIC [id number] 21:24:00* Test Item Value Reference Range Interpretation [...] = CA) 10.0 mg/dL 8.4-10.2 N LIVER [id number] 21:24:00* Test Item Value Reference Range Interpretation [...] units/L 46-116 N - US PREG UT [id number] 20:41:00 [facility] : 1990 Sex: F Patient Name: LANEY YOUNG Unit No: [id number] EXAMS: CPT CODE: [id number] US PREG UT TRANSVAGINAL 18671 COMPARISON: None CLINICAL HISTORY: 32 weeks , history of elevated blood pressure FINDINGS: A limited OB ultrasound was performed to evaluate for biophysical profile. Uterus: Single intrauterine Lower uterine segment/cervix: Normal with a cervical length of 2.6 cm Placenta loca tion: Posterior. No evidence for placenta previa or placenta abruption Amniotic fluid volume: Appropriate with THONG = 19 cm position: Cephalic heart rate: 125 beats per minute BIOPHYSICAL PROFILE ARE FOLLOW: breathing movement: 2 Gross body movement: 2 tone: 2 QuantitativeAFV: 2 Total: 8 out of 8 IMPRESSION: Viable single intrauterine with a biophysical profile 8 out of 8. at 2040 Reported and signed by: Venkata Ho M.D. CC: Matt Evans DO Technologist: Cheri Coto RDMS Probe: [id number] Trnscrbd D/ (2040) Jerrod Orig Print D/T: S: 10/01/2023 (2043) [facility] NAME: LANEY YOUNG Radiology Department PHYS: Matt Strange [address] : 1990 AGE: 32 SEX: F [place] [address] LOC: F.3036 A PHONE#: [phone] EXAM DATE: 10/01/2023 STATUS: ADM IN FAX #: [phone] RAD NO: Page 1 Signed Report Patient Name: LANEY YOUNG Unit No: [id number] EXAMS: CPT CODE: [id number] US PREG UT TRANSVAGINAL 90011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 Mensah at 1518 RPT #:[id number] END OF REPORT [facility] 2023-10-02 13:15:00 [facility] ([facility]) MF Consultation Note REPORT#:[id number] REPORT STATUS: Signed REPORT INITIALIZATION DATE:10/02/23 TIME: 1314 PATIENT: LANEY YOUNG UNIT #: [id number] ROOM/BED: [address] : 91 AGE: 32 SEX: F ATTEND: Matt Evans DO ADM AUTHOR: Goldie Dyson MD REPT SERVICE DT/TIME: 10/02/23 1315 * ALL edits or amendments must be made on the electronic/computer document * History of Present Illness HPI Requesting clinician: Dr. Evans Reason for consult: Concern for elevated blood pressures, rule out preeclampsia Chief complaint: The patient is a at 32w4d by established EDC, who presented to OB office visit with complaint of elevated blood pressures and headache. She was admitted for observation, BP monitoring and laboratory evaluation to rule out preeclampsia. Since admission reports a headache which comes and goes but denies vision changes or RUQ pain. Her blood pressure has been normal . history: : 7 Term: 6 : 0 Abortus: 0 Living children: 6 Complications (prev preg): preeclampsia Previous : none Current : Best EDC: 11/23/23 Admission EGA (weeks) 32 Admission EGA (days) 3 EDC based on: LMP Conditions of : anemia, HTN-gestational Labs: Blood type: O Rh: positive Rubella: non-immune Hepatitis B: negative HIV: negative STD: negative Syphilis: currently negative GBS: unknown Procedures: none Genetic testing: none Past History Alcohol Use Denies EtOH use Drug Use Denies recreational drugs Smoking status for patients 13 years old or older: Never Smoker Allergies: Coded Allergies: No Known Allergies (09/24/23) History Past History Allergies: Coded Allergies: No Known Allergies (10/01/23) Objective Physical Exam VS/I O: Vital Signs Date Temp Pulse Resp B/P B/P Mean Pulse Ox FiO2 09/30-10/01 97.8-98.3 78-110 18-20 107-127/58-77 80.0-93.0 98-100 Last Documented: Result Date Time B/P Mean 83.0 10/01 1230 B/P 108/68 10/01 1230 Pulse 93 10/01 1230 Pulse Ox 100 10/01 0840 Temp 97.8 09/30 2100 Resp 20 09/30 2100 24 hour I O ending at 0700: 10/01 0700 09/30 1900 Intake Total Output Total Balance Patient 377 lb Weight PATIENT WEIGHT: Weight (lb): 376 Weight (oz): 15.85 Weight (kg): 171.000 General appearance: alert, awake, oriented, no acute distress Cardiovascular: regular rate Respiratory: no distress, aerating well, non labored respirations Abdomen: non-tender, soft, no guarding, no mass/organomegaly, no rebound, no RUQ pain . Neuro/GLASS ARTIST: alert, oriented x 3, normal speech Psychiatry: normal affect heart rate: Baby A: Baby A baseline: 135 bpm Baby A variability: moderate 6-25 bpm Baby A accelerations: 15 X 15 Baby A decelerations: none Baby A FHR category: category 1 Findings/data: heart rate pattern: category I Results Findings/Data: Laboratory Tests 10/01 1919 Chemistry Sodium (135 - [...] % (Auto) (14.5 - 29.7 %) 21.9 Ford % (Auto) (3.6 - 10.2 %) 5.8 Eos % (Auto) (0.0 - 3.0 %) 0.9 Baso % (Auto) (0.1 - 0.9 %) 0.3 Neut # (Auto) (K/mm3) 7.5 Lymph # (Auto) (K/mm3) 2.3 Ford # (Auto) (K/mm3) 0.6 Eos # (Auto) (K/mm3) 0.10 Baso # (Auto) (K/mm3) 0.0 Laboratory Tests 10/01 1919 Serology Treponema pallidum Ab (NONREACTIVE) NONREACTIVE Hep Bs Antigen (NONREACTIVE) NONREACTIVE Hepatitis C Antibody (NONREACTIVE) NONREACTIVE Hep C Ab Signal/Cutoff (<0.80) 0.06 HIV 1 2 Antibody (NONREACTIVE) NONREACTIVE Radiology data: Recent Impressions: ULTRASOUND - US PREG UT TRANSVAGINAL 09/30 1733 Report Impression - Status: SIGNED Entered: 10/01/20232043 IMPRESSION: Viable single intrauterine with a biophysical profile 8 out of 8. Impression By: Jerrod Ho M.D. ULTRASOUND - US FET BIO PH MS W/O NST 09/30 1733 Report Impression - Status: SIGNED Entered: 10/01/20232043 IMPRESSION: Viable single intrauterine with a biophysical profile 8 out of 8. Impression By: [email or web address] - Venkata N. Ho, M.D. Diagnosis, Assessment Plan Diagnosis, Assessment Plan Free Text A P: The patient is a at 32w4d by established EDC, who was admitted for BP monitoring and evaluation of preeclampsia due to reported elevated blood pressures and intermittent headaches, 1. Concern for preeclampsia - afebrile/VSS - normotensive with no elevated BPs - per discussion with Dr. Evans pt had [...] our recommendations for close outpatient surveillance, with serial lab assessment, serial growth studies and ambulatory BP logs - if she has greater than 2 elevated blood pressures after 20 weeks gestational age, she does meet the criteria for at least gestational hypertension and will need to have a lab evaluation including CBC/CMP and UPCR as well as evaluation of symptoms associated with severe disease. - At this time she was counseled on close monitoring of symptoms and ambulatory blood pressure logs. - she was also counseled regarding her intermittent headaches, to monitor any associated neurologic symptoms and to return to the hospital if she has any of these. She is stable for discharge home with close outpatient follow up as noted above, and precautions as noted above. Discussed with Dr. Cristina Dyson MD Maternal Medicine . at 1556 RPT #:[id number] END OF REPORT [facility] 2023-10-02 09:23:00 [facility] ([facility]) OB Antepartum Prog Note REPORT#:[id number] REPORT STATUS: Signed REPORT INITIALIZATION DATE:10/02/23 TIME: 922 PATIENT: LANEY YOUNG UNIT #: [id number] ROOM/BED: [facility]-A : 91 AGE: 32 SEX: F ATTEND: Matt Evans DO ADM AUTHOR: Matt Evans DO REPT SERVICE DT/TIME: 10/02/23922 * ALL edits or amendments must be made on the electronic/computer document * Subjective Subjective Admission EGA: Weeks: 32 Days: 3 Patient reports: Patient reports: Yes no complaints, Yes normal movement, Yes headache, No leaking fluid, No contractions, No blurred vision, No scotomata Objective VS: Last Documented: Result Date Time B/P Mean 93.0 10/01 0841 B/P 118/77 / 0841 Pulse 85 / 0841 Pulse Ox 100 10/01 0840 Temp 97.8 09/30 2101 Resp 20 09/30 210 Vital Signs Date Temp Pulse Resp B/P B/P Mean Pulse Ox FiO2 /-10/01 97.8-98.3 78-110 18-20 107-127/58-77 80.0-93.0 98-100 PATIENT WEIGHT: Weight (lb): 376 Weight (oz): 15.85 Weight (kg): 171.000 Membranes: Intact Uterine activity: Monitor: toco Frequency (description): none Abdomen: gravid, no abnormal tenderness, no guarding Baby A: Baby A baseline: 135 bpm Baby A variability: moderate 6-25 bpm Baby A accelerations: 15 X 15 Baby A decelerations: none Baby A FHR category: category 1 Findings/data: Laboratory Tests: 10/01 1919 Chemistry Sodium (135 - [...] % (Auto) (14.5 - 29.7 %) 21.9 Ford % (Auto) (3.6 - 10.2 %) 5.8 Eos % (Auto) (0.0 - 3.0 %) 0.9 Baso % (Auto) (0.1 - 0.9 %) 0.3 Neut # (Auto) (K/mm3) 7.5 Lymph # (Auto) (K/mm3) 2.3 Ford # (Auto) (K/mm3) 0.6 Eos # (Auto) (K/mm3) 0.10 Baso # (Auto) (K/mm3) 0.0 Serology Treponema pallidum Ab (NONREACTIVE) NONREACTIVE Hep Bs Antigen (NONREACTIVE) NONREACTIVE Hepatitis C Antibody (NONREACTIVE) NONREACTIVE Hep C Ab Signal/Cutoff (<0.80) 0.06 HIV 1 2 Antibody (NONREACTIVE) NONREACTIVE Recent Impressions: ULTRASOUND - US PREG UT TRANSVAGINAL 09/30 1733 Report Impression - Status: SIGNED Entered: 10/01/20232043 IMPRESSION: Viable single intrauterine with a biophysical profile 8 out of 8. Impression By: Jerrod Ho M.D. ULTRASOUND - US FET BIO PH MS W/O NST 09/30 1733 Report Impression - Status: SIGNED Entered: 10/01/20232043 IMPRESSION: Viable single intrauterine with a biophysical profile 8 out of 8. Impression By: Jerrod Ho M.D. Diagnosis, Assessment Plan Diagnosis, Assessment Plan Assessment: hypertension Plan: continue current managmnt, 24hr urine pending, MFM consult pending. Fioriciet PRN headache Will monitor symptoms at this time at 0924 RPT #:[id number] END OF REPORT [facility] 2023-10-01 16:52:00 [facility] ([facility]) OB Admission / H P REPORT#:[id number] REPORT STATUS: Signed REPORT INITIALIZATION DATE:10/01/23 TIME: 1651 PATIENT: LANEY YOUNG UNIT #: [id number] ROOM/BED: [address] : 91 AGE: 32 SEX: F ATTEND: Matt Evans DO ADM AUTHOR: Matt Evans DO REPT SERVICE DT/TIME: 10/01/231651 * ALL edits or amendments must be made on the electronic/computer document * OB History Chief complaint: elevated blood pressure HPI: @ 32w3d who presents to OB office visit with complaint of elevated blood pressures and headache. history: : 7 Term: 6 : 0 Abortus: 0 Living children: 6 Complications (prev preg): preeclampsia Previous : none Current : Best EDC: 11/23/23 Admission EGA (weeks) 32 Admission EGA (days) 3 EDC based on: LMP Conditions of : anemia, HTN-gestational Labs: Blood type: O Rh: positive Rubella: non-immune Hepatitis B: negative HIV: negative STD: negative Syphilis: currently negative GBS: unknown Procedures: none Genetic testing: none Past History Alcohol Use Denies EtOH use Drug Use Denies recreational drugs Smoking status for patients 13 years old or older: Never Smoker Allergies: Coded Allergies: No Known Allergies (09/24/23) Review of Systems All systems rev neg: except as marked Objective General VS: PATIENT WEIGHT: Weight (lb): Weight (oz): Weight (kg): Physical Exam Abdomen: gravid, no abnormal tenderness, no guarding Uterine activity: Monitor: toco Frequency (description): none Pelvic exam: Pelvis clinically adequate: yes, inlet appears appropriate, pubic bone config appropr, no midpelvic contraction Vulvar lesions: none Membranes: Membranes: Intact Baby A: Baby A baseline: 135 bpm Baby A variability: moderate 6-25 bpm Baby A accelerations: 15 X 15 Baby A decelerations: none Baby A FHR category: category 1 Diagnosis, Assessment Plan Diagnosis, Assessment Plan Assessment/Impression: hypertension-gestational Plan: admit to observation, preeclampsia precautions at 1703 RPT #:[id number] END OF REPORT [facility] 2023-05-24 01:24:33 Pt given printed and verbal discharge instructions regarding vaginal bleeding before 22 weeks gestation and vaginal bleeding Pt verbalized understanding of instructions, pt awake alert oriented, resp reg unlabored, skin w/d, color appropriate for race, moves all ext well,pt encouraged to follow up with pcp Advised to seek medical attention for new/prolonged/worsening of symptoms No adverse reaction to meds given in ER noted upon discharge PIV d'cd, dressing to site, catheter in tact. Awake, alert oriented, resp reg unlabored, skin w/d, pt leaving amb with steady gait, in no apparent distress A LIBRARIAN Mary Ann Babin RN [facility] 2023-05-24 00:00:05 Nurse Report Report given to LOIS Interiano. Chief complaint, assessment findings, and orders reviewed. Plan of care discussed with both nurses. Lynda Olmstead RN A LIBRARIAN Lynda Olmstead RN [facility] 2023-05-23 23:59:43 US at bedside. A LIBRARIAN [facility] 2023-05-23 23:07:15 Summary: US Called out US ETA 1hr Lorena Cruz [facility] [employer] 2023-05-23 22:22:27 Pt arrived via EMS for vaginal bleeding. Pt is approx 13 weeks and began bleeding and passing large clots after having intercourse. LMP 02/15/23 EMS found HR in route at 160bpm. Pt has pain in lower abdomen now and reports a hard ball like area. Received 12.5 phenergan in route Hx: Anxiety, HTN [facility] [email or web address] 2023-05-23 22:22:00 [facility] Emergency Department Note Patient Name: Laney Young Date of : 1990 32 year old female Treatment Room: Room/bed info not found Primary Care Physician: No primary care provider on file. Patient Escorted by: Self [9] Mode of Arrival: EMS - [place] [51] EMS Treatment Prior to ED Arrival: OFFICE TECHNOLOGY PROFESSOR treatment: IVF OFFICE TECHNOLOGY PROFESSOR treatment comments: 12.5 Phenergan Travel and Exposure Screening: Symptoms Does patient have any of these symptoms?: (not recorded) Exposure Screening Has patient had contact with someone with a communicable disease in the last month?: (not recorded) Diseases exposed to:: (not recorded) Is Patient ?: (not recorded) Exposure Date: (not recorded) Chief Complaint: Chief Complaint Patient presents with Vaginal Bleeding History of Present Illness: Laney Young is a 32 year old female who presents to the ED for evaluation of vaginal bleeding that began after sexual intercourse. Pt reports passing large clots as well as what appeared to be tissues. Also has pain to left suprapubic region rated 6/10. Pt is currently 13 weeks and 2 days . Pt has GRAIN SCOOPER US at the [facility] in [place] History provided by: Medical records, spouse and patient translator/interpreter used: No Vaginal Bleeding- Quality: Passed tissue and clots Severity: Moderate Onset quality: Sudden Duration: 1 day Timing: Sporadic Chronicity: New Prior : yes confirmed by ultrasound: yes care: Regular care Context: after intercourse and spontaneously Context: not genital trauma Relieved by: None tried Worsened by: Nothing Ineffective treatments: None tried Associated symptoms: abdominal pain Associated symptoms: no back pain, no dizziness, no dyspareunia, no dysuria, no fatigue, no fever, no nausea and no vaginal discharge Risk factors: no bleeding disorder, no gynecological surgery, no hx of ectopic , no hx of endometriosis, does not have multiple partners, no new sexual partner, no ovarian cysts, no ovarian torsion, no PID, no prior miscarriage, no STD, no STD exposure and no terminated Past Medical History/Immunizations: None Tetanus received in last 5 years: Unknown Allergies: No Known Allergies Past Social History: Substance & Sexual Activity No substance use or sexual activity history on file. Past Surgical History: none Review of Systems: Review of Systems Constitutional: Negative. Negative for fatigue and fever. HENT: Negative. Eyes: Negative. Respiratory: Negative. Breasts: Negative. Cardiovascular: Negative. Gastrointestinal: Positive for abdominal pain. Negative for abdominal distention, anal bleeding, blood in stool, constipation, diarrhea, nausea, rectal pain and vomiting. Genitourinary: Positive for vaginal bleeding. Negative for dysuria, vaginal discharge, vaginal pain and dyspareunia. Musculoskeletal: Negative. Negative for back pain. Skin: Negative. Neurological: Negative. Negative for dizziness. Psychiatric/Behavioral: Negative. All other systems reviewed and are negative. Endocrine: Endocrine negative Physical Exam: ED Triage Vitals [05/23/232223] Weight 61.2 kg (135 lb) Actual or estimated Estimated by patient/family report Height 1.626 m (5' 4") BP (!) 143/99 Pulse 99 Resp 20 Temp 37.2 ?C (98.9 ?F) Temp source Oral SpO2 95 % Measured on Room air Physical Exam Vitals and nursing note reviewed. Constitutional: General: She is not in acute distress. Appearance: Normal appearance. She is well-developed and normal weight. She is not ill-appearing or toxic-appearing. HENT: Head: Normocephalic and atraumatic. Right Ear: External ear normal. Left Ear: External ear normal. Nose: Nose normal. Mouth/Throat: Pharynx: No oropharyngeal exudate. Eyes: General: No scleral icterus. Right eye: No discharge. Left eye: No discharge. Conjunctiva/sclera: Conjunctivae normal. Pupils: Pupils are equal, round, and reactive to light. Neck: Thyroid: No thyromegaly. Cardiovascular: Rate and Rhythm: Normal rate and regular rhythm. Pulses: Normal pulses. Heart sounds: Normal heart sounds. No murmur heard. Pulmonary: Effort: Pulmonary effort is normal. No respiratory distress. Breath sounds: Normal breath sounds. No stridor. No wheezing or rales. Chest: Chest wall: No tenderness. Abdominal: General: Bowel sounds are normal. There is no distension. Palpations: Abdomen is soft. There is no mass. Tenderness: There is abdominal tenderness. There is no right CVA tenderness, left CVA tenderness, guarding or rebound. Hernia: No hernia is present. Comments: Mild TTP LLQ Musculoskeletal: General: No swelling, tenderness, deformity or signs of injury. Normal range of motion. Cervical back: Normal range of motion and neck supple. No rigidity or tenderness. Right lower leg: No edema. Left lower leg: No edema. Lymphadenopathy: Cervical: No cervical adenopathy. Skin: General: Skin is warm and dry. Capillary Refill: Capillary refill takes less than 2 seconds. Coloration: Skin is not jaundiced or pale. Findings: No bruising, erythema, lesion or rash. Neurological: General: No focal deficit present. Mental Status: She is alert and oriented to person, place, and time. Cranial Nerves: No cranial nerve deficit. Sensory: No sensory deficit. Motor: No weakness or abnormal muscle tone. Coordination: Coordination normal. Gait: Gait normal. Deep Tendon Reflexes: Reflexes normal. Psychiatric: Behavior: Behavior normal. Thought Content: Thought content normal. Judgment: Judgment normal. Radiology: US FIRST TRIMESTER LESS THAN 14 WEEKS WITH TRANSVAGINAL Final Result Ordering physician: BRUCE LARA INDICATION: Early , vaginal bleeding COMPARISON: None TECHNIQUE: Grayscale and Doppler images of the pelvis were performed via a transabdominal and endovaginal approach. FINDINGS: There is a single live intrauterine gestation in variable position. Estimated gestational age by crown-rump length is 13 weeks, 4 days. cardiac rate is measured at 168 bpm. There is a low lying posterior placenta with the tip approximately 8 mm from the internal os. The cervix is closed, measuring 3.8 cm in length. Amniotic fluid volume is grossly within normal limits. The right ovary is obscured by overlying bowel gas. The left ovary measures 2.7 x 1.6 x 2.3 cm. There is grossly preserved color Doppler flow. There is questionable trace free fluid in the posterior cul-de-sac. IMPRESSION Single live intrauterine gestation in variable position, approximately 13 weeks, 4 days by ultrasound measurements, for an ultrasound MARU of 11/24/2023. Low lying posterior placenta without ultrasound evidence for placenta previa or abruption. Grossly normal amniotic fluid level. Trace free fluid in the maternal posterior cul-de-sac. RL: [id number] AFC: [id number] Lab Results: Lab Results URINALYSIS - Abnormal Result Value Ref Range APPEARANCE Turbid (*) Clear COLOR Red (*) Yellow PH 6.0 4.8 - 8.0 SP GRAVITY >1.030 (*) 1.003 - 1.030 GLU U QUAL Negative Negative BLOOD Large (*) Negative KETONES >80 mg/dL (*) Negative PROTEIN >300 mg/dL (*) Negative UROBILIN 0.2 mg/dL 0-1.0 mg/dL BILIRUBIN Negative Negative NITRITE Negative Negative LEUK UMBERTO Negative Negative RBC/HPF >182 (*) 0 - 3 HPF WBC/HPF >182 (*) 0 - 5 HPF BACTERIA Negative Negative SQ EPITH 15 HPF WBC CLUMPS >182 (*) <=1 HPF CBC WITH DIFF - Abnormal WBC 11.64 (*) 4.30 - 11.10 10*3/?L RBC 3.97 3.93 - 5.25 10*6/?L HGB 12.3 11.6 - 15.0 g/dL HCT 35.3 (*) 35.7 - 45.2 % MCV 88.9 80.6 - 95.5 fL MCH 31.0 25.9 - 32.8 pg MCHC 34.8 31.6 - 35.1 g/dL RDW-SD 42.6 39.0 - 49.9 fL RDW-CV 13.1 12.0 - 15.5 % PLT 292 166 - 358 10*3/?L MPV 10.2 9.5 - 12.9 fL NRBC/100 WBC 0.0 0.0 - 10.0 /100 WBCs NRBC x10 3 <0.01 10*3/?L GRAN MAT (NEUT) % 74.0 % IMM GRAN % 0.30 % LYMPH % 19.8 % MONO % 4.3 % EOS % 1.2 % BASO % 0.4 % GRAN MAT x10 3 (ANC) 8.61 (*) 1.88 - 7.09 10*3/uL IMM GRAN x10 3 0.04 0.00 - 0.06 10*3/uL LYMPH x10 3 2.30 1.32 - 3.29 10*3/uL MONO x10 3 0.50 0.33 - 0.92 10*3/uL EOS x10 3 0.14 0.03 - 0.39 10*3/uL BASO x10 3 0.05 0.01 - 0.07 10*3/uL BASIC METABOLIC PANEL (NA, K, CL, CO2, GLUCOSE, BUN, CREATININE, CA) - Abnormal NA 132 (*) 135 - 145 mmol/L K 4.0 3.5 - 5.0 mmol/L CL 100 98 - 108 mmol/L CO2 TOTAL 17 (*) 23 - 31 mmol/L AGAP 15 2 - 16 BUN 7 7 - 23 mg/dL GLUCOSE 72 70 - 110 mg/dL CREATININE 0.51 0.50 - 1.04 mg/dL CALCIUM 10.7 (*) 8.6 - 10.6 mg/dL eGFR 128.2 mL/min/1.73m2 POCT TEST - Normal POCT PREG Positive On board controls acceptable with C Line Yes POCT PREG LOT # [id number] POCT PREG TEST DATE 08/04/2024 TOTAL BETA HCG ASSAY BETA HCG 45,228.00 Non- female and male patients: <5 mIU/mL TYPE AND SCREEN ABO & RH O Positive IAT Negative ABORH CONFIRMATION (LAB ONLY) ABO & RH O Positive Orders and Treatments: Orders Placed This Encounter Procedures US FIRST TRIMESTER LESS THAN 14 WEEKS WITH TRANSVAGINAL Urinalysis Cbc with Diff Basic Metabolic Panel (NA, K, CL, CO2, GLUCOSE, BUN, CREATININE, CA) TOTAL BHCG (QUANTITATIVE) POCT TEST Type and Screen - ONCE STAT ABORH Confirmation (Lab Only) No orders of the defined types were placed in this encounter. First Provider Eval: ED Events Date/Time Event User Comments 05/23/232226 Medical Screening Begins BRUCE LARA MD -- 05/23/232226 First Provider Evaluation BRUCE LARA MD -- ED COURSE Diagnosis/Impression as of 05/24/23116 Vaginal bleeding Vaginal bleeding before 22 weeks gestation Procedures: Procedures MDM: Medical Decision Making Laney Young is a 32 year old female who presents to the ED with vaginal b;leedingafter intercourse. Pt is 13 weeks Problems Addressed: Vaginal bleeding before 22 weeks gestation: acute illness or injury Amount and/or Complexity of Data Reviewed Independent Historian: spouse Labs: ordered. Decision-making details documented in ED Course. Radiology: ordered. Decision-making details documented in ED Course. Risk OTC drugs. Risk Details: Has an appointment with own OB-DENTAL CERAMIST ASSISTANT. Will follow-up Flowsheet Documentation: Scoring Tools: No data recorded Disposition/Condition: ED Disposition ED Disposition Disch - Home Condition Stable Comment -- Discharge Medications: Patient's Medications No medications on file Follow-up: Electronically signed by: Bruce Lara MD 05/24/23116 [facility]
--- NOTE | 2024-07-09 21:16 | RAD REPORT ---
EXAM: CT brain without contrast HISTORY: TRAUMA COMPARISON: None TECHNIQUE: Multiple contiguous axial images were obtained and a CT of the brain without contrast. Sag ittal and coronal reformats were performed. FINDINGS: No evidence of hydrocephalus, intracranial hemorrhage, or extra-axial fluid collection. The brain is normal in morphology. The calvarium is intact. Moderate mucosal thickening along the left maxillary sinus. Mastoid air cell s are essentially clear. IMPRESSION: No evidence of acute intracranial abnormality. EXAM: CT of the cervical spine without contrast HISTORY: TRAUMA COMPARISON: None TECHNIQUE: Multiple contiguous axial images were obtained in a CT of the cervical spine without contr ast. Sagittal and coronal reformats were performed. FINDINGS: The vertebral bodies demonstrate normal height and alignment. No evidence of acute fracture or subluxation.. No degenerative changes are present. No prevertebral soft tissue swelling is seen. The posterior facets are well aligned. Normal alignment of the skull base with the cervical spine is seen. The lung apices are unremarkable. Periapical collections along the roots of the left maxillary first and second molars, and right mandibular second molar. IMPRESSION: No evidence of acute osseous abnormality of the cervical spine. Dental and periodontal disease as above, with probable left maxillary odontogenic sinusitis.
[2024-07-09 21:32] LABS: Absolute Basophils 0.1 K/uL (0-0.5); Absolute Lymphocytes (CBC) 1.1 K/uL (0.7-4.9); Absolute Monocytes 0.2 K/uL (0.1-1.3); Absolute Neutrophil 6.8 K/uL (1.8-8.0); Basophils % 0.6 % (0-1.3); Hematocrit 44.8 % (36.0-45.0); Hemoglobin 15.2 g/dL (12.0-15.0); Lymphocytes % 13.8 % (15.3-44.8); MPV 8.3 fL (7.6-11.3); Monocytes % 2.8 % (3.3-12.3); Neutrophils % 82.8 % (41.7-73.7); Nucleated Red Blood Cells % 0.1 % (0-0); Platelets 379 thou/uL (152-406); RBC Red Blood Cell Count 4.77 M/uL (3.86-4.86); Red Cell Distribution Width 15.1 % (12.1-15.2)
[2024-07-09 21:43] LABS: Anion Gap 19.5 mEq/L (5.0-15.0); Potassium 4.5 mEq/L (3.5-5.1)
[2024-07-09] MEDS ORDERED: DIPHENHYDRAMINE 50 MG/ML VIAL ONE (21:46)
[2024-07-09] MEDS ORDERED: ONDANSETRON 4 MG/2 ML VIAL ONE (21:46)
[2024-07-09] MEDS ORDERED: NA CHLORIDE 0.9% 1,000 ML ONE (22:07)
[2024-07-09] MEDS ORDERED: LORazepam 2 MG/ML VIAL ONE (22:38)
[2024-07-10 00:27] LABS: Anion Gap 13.3 mEq/L (5.0-15.0); Potassium 4.3 mEq/L (3.5-5.1)
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
[2024-07-10] MEDS ORDERED: DIAZEPAM 5 MG TABLET ONE (01:04)
[2024-07-10 01:27] VITALS: TEMP 97.3
[2024-07-10 01:33] VITALS: BP 115/82; O2SAT 98
== END 2024-07-10 01:23 | disposition home or self-care (01) ==
LOC: ER 19:17
DX: S06.0X9A Concussion with loss of consciousness of unspecified duration, initial encounter (principal); F41.9 Anxiety disorder, unspecified; F17.210 Nicotine dependence, cigarettes, uncomplicated
CPT/HCPCS: 96361; 93005; 85025; 80048 ×2; 36415; 70450; 72125; 96375; 96374; 99285; J1200; J2405; J7030